=== PATIENT | female | born 1950 | race Caucasian/White ===

== ENCOUNTER 2019-10-19 16:06 | Emergency (ER) | payer MEDICARE, SELFPAY ==
--- NOTE | ~2019-10-19 | XR_ITS ---
EXAMINATION: XR chest 2V EXAM DATE: 10/19/2019 17:16 INDICATION: Chest, upper back pain. TECHNIQUE: Frontal and lateral projections of the chest obtained and reviewed. Comparison is made to prior examination from 12/08/2017. FINDINGS: The lungs are clear. There are no pleural effusions. The cardiomediastinal silhouette is within normal limits. There is no pneumothorax suspected. The bones and soft tissues are unremarkab le. IMPRESSION: No acute cardiopulmonary findings. Reviewed, dictated and finalized at location A.
[2019-10-19 16:33] VITALS: BP 106/80; PULSE 88; RESP 16; TEMP 37.2; O2SAT 99
--- NOTE | 2019-10-19 16:45 | ED.URI ---
HPI - URI/Sore Throat General Chief Complaint: Upper Respiratory Infection Stated Complaint: sinus/ear infection Time Seen by Provider: 10/19/19 16:45 Source: patient and RN notes reviewed Mode of arrival: ambulatory Limitations: no limitations History of Present Illness HPI Narrative: 69-year-old female presents with concern for fatigue, generalized weakness, upper back ache, upper chest ache. Reports she flew home from [place] on September 13, 2 weeks later began having symptoms and was started on Augmentin for a sinus and ear infection. Reports she is on day 5 of the Augmentin. Reports she feels worse today. Reports the upper chest and back aches are constant, gets worse with deep breathing. She reports the symptoms have been present for 3 to 4 days. Reports diarrhea. She denies cough, shortness of breath. Denies fever. Denies taking any gftz-dze-jdvcekh medications for her symptoms. MD elicited complaint: nasal congestion Related Data Home Medications Medication Instructions Recorded Confirmed amoxicillin-pot clavulanate tablet 10/19/19 Allergies Allergy/AdvReac Type Severity Reaction Status Date / Time No Known Drug Allergies Allergy Unknown none Verified 12/08/17 19:25 Cat Dander Allergy Mild Uncoded 11/29/13 18:23 Review of Systems Review of Systems: Narrative: CONSTITUTIONAL: Reports malaise, fatigue, generalized weakness. Denies chills, sweats, or fever. EYES: Denies visual changes, redness, or discharge. ENT: Reports rhinorrhea, congestion, sinus pain, otalgia. Denies sore throat. CARDIOVASCULAR: Reports anterior chest ache. Denies, palpitations, or edema. RESPIRATORY: Denies cough or dyspnea. GASTROINTESTINAL: Denies abdominal pain, nausea, vomiting. Reports diarrhea SKIN: Denies rash or itching. MUSCULOSKELETAL: Reports malagia and upper back aches NEUROLOGIC: Denies headache. All systems reviewed & are unremarkable except as noted in HPI and below PMFSH Comments At time of signature, agree with nursing past medical, surgical, social and family history. There is no relevant family history pertinent to the presenting complaint Exam Narrative: Exam Narrative: GENERAL: Nontoxic-appearing, well-nourished, and in no acute distress. HEAD: Normocephalic EYES: PERRLA, conjunctivae clear ENT: Nares clear, turbinates erythematous, clear discharge. Mucous membranes moist. TM pearly cooper with dull light reflex bilaterally; no tragal tenderness. Oropharynx not erythematous without lesions. Tonsils not enlarged and without exudate, no drooling, no hoarseness, no trismus, uvula midline. NECK: Supple. No lymphadenopathy CHEST: Clear to auscultation, breath sounds equal. No wheezing, rhonchi, rales, or stridor. No respiratory distress, speaks in full sentences. HEART: Regular rate and rhythm. No murmur heard. SKIN: Warm, dry, no rash. NEURO: Alert and oriented x3. PSYCH: Normal mood and affect Course Course Emergency Course: Patient is aware of diagnosis, understands and agrees to treatment plan. Anticipatory guidance given. Patient agrees to follow-up as directed and is aware of reasons to seek care at the emergency department. Portions of this record may have been created with voice recognition software Vital Signs Vital signs: Vital Signs Temperature 98.9 F 10/19/19 16:33 Pulse Rate 88 10/19/19 16:33 Respiratory Rate 16 10/19/19 16:33 Blood Pressure 106/80 10/19/19 16:33 Pulse Oximetry 99 10/19/19 16:33 Temperature 98.9 F 10/19/19 16:33 Pulse Rate 88 10/19/19 16:33 Respiratory Rate 16 10/19/19 16:33 Blood Pressure 106/80 10/19/19 16:33 Pulse Oximetry 99 10/19/19 16:33 Reviewed. MDM - URI/Sore Throat MDM Narrative Medical decision making narrative: Differential diagnosis considered: Coronavirus, strep pharyngitis, allergic rhinitis, upper respiratory tract infection, sinusitis, rhinosinusitis, nasopharyngitis. viral pharyngitis, otitis media, otitis externa, pneumonia,
--- NOTE | 2019-10-19 17:16 | PC.NURSE ---
back from xray and in br
== END 2019-10-19 17:58 | disposition home or self-care (01) ==
PROVIDERS: Emergency Provider Nurse Practitioner
DX: R52 Pain, unspecified (principal); Z20.828 Contact with and (suspected) exposure to other viral communicable diseases
CPT/HCPCS: 71046; 93005; 99213; G0463

== ENCOUNTER 2020-06-13 10:02 | Outpatient (CLI) | payer MEDICARE, SELFPAY ==
--- NOTE | ~2020-06-13 | XR_ITS ---
EXAMINATION: XR abdomen obstructive series DATE: 06/13/2020 10:32 INDICATION: Unspecified right lower abdominal pain TECHNIQUE: Supine and upright views of the abdomen. FINDINGS: Comparison to multiple prior studies sequentially, with oldest reviewed study dated 2006. The visualized lung parenchyma is normal.. There is a nonobstructive bowel gas pattern. Gas and stool are seen throughout the colon to the level of the rectum. There is no free air. There are cholecyst ectomy clips. IMPRESSION: 1. No acute abdominal abnormality. Reviewed, dictated and finalized at location A. RITY SERGEANT
--- NOTE | ~2020-06-13 | US_ITS ---
EXAMINATION: US venous doppler [facility] DATE: 06/13/2020 11:10 INDICATION: Acute embolism and thrombosis of unspecified deep veins of unspecified lower extremity. TECHNIQUE: Grayscale ultrasound images without and with compression and Doppler ultrasound images of the bilateral lower extremity veins were obtained. COMPARISON: None. FINDINGS: The visualized portions of right common femoral vein, profunda (deep) femoral vein, femoral vein, pop liteal vein, peroneal veins, posterior tibial veins, and greater saphenous vein outflow are patent. The visualized portions of left common femoral vein, profunda femoral vein, femoral vein, popliteal v ein, peroneal veins, posterior tibial veins, and greater saphenous vein outflow are patent. IMPRESSION: 1. No deep venous thrombosis. Reviewed, dictated and finalized at location A. TECHNIC MIXER
== END 2020-06-13 10:03 | disposition home or self-care (01) ==
PROVIDERS: PCP Family Medicine; Visit Provider Physician Assistant
DX: I82.402 Acute embolism and thrombosis of unspecified deep veins of left lower extremity (principal); R10.9 Unspecified abdominal pain
CPT/HCPCS: 74019; 93970

== ENCOUNTER 2020-11-02 12:07 | Emergency (ER) | payer MEDICARE, SELFPAY ==
[2020-11-02 12:18] VITALS: BP 142/66; PULSE 88; RESP 12; TEMP 36.6; O2SAT 99
--- NOTE | 2020-11-02 12:51 | ED.FEMALEGU ---
HPI - Female Genitourinary General Chief complaint: Urogenital-Female Stated complaint: uti Time Seen by Provider: 11/02/20 12:07 Source: patient and RN notes reviewed Mode of arrival: ambulatory Limitations: no limitations History of Present Illness HPI Narrative: Patient presents today complaining of low back discomfort since yesterday with fatigue and hematuria that started this morning. Denies dysuria and urinary frequency. She believes that she is developing a UTI. History of kidney stones in the past. She has tried no jbde-xdf-abviolz treatment prior to arrival. Believes that she is not drinking enough water recently. MD elicited complaint: UTI Related Data Allergies Allergy/AdvReac Type Severity Reaction Status Date / Time No Known Drug Allergies Allergy Unknown none Verified 11/02/20 12:26 Cat Dander Allergy Mild Unknown Uncoded 11/02/20 12:26 Review of Systems Review of Systems: Narrative: CONSTITUTIONAL: Denies body aches, fever, chills, or sweats.+ Fatigue EYES: Denies visual changes, redness, or discharge. ENT: Denies rhinorrhea, congestion, sore throat, or otalgia. CARDIOVASCULAR: Denies chest pain, palpitations, or edema. RESPIRATORY: Denies cough or dyspnea. GASTROINTESTINAL: Denies abdominal pain, nausea, vomiting, or diarrhea. GENITOURINARY: + Hematuria SKIN: Denies rash, itching, or wounds. MUSCULOSKELETAL: Denies joint pain, or myalgia. + Low back pain NEUROLOGIC: Denies headache, numbness, tingling, or weakness. PSYCH: Denies depression or anxiety. [facility] Past Medical History Medical History (Updated 11/02/20 @ 13:08 by Fauzia Boss, [facility]) Deep vein thrombosis (DVT) of left lower extremity Mild depression Mixed hyperlipidemia Nephrolithiasis Post-COVID syndrome Prediabetes Surgical History Surgical History H/O: hysterectomy (~2001) Hx of appendectomy (~1974) Hx of cholecystectomy (~2013) Family History Family History Mother Hypertension HLD (hyperlipidemia) Breast cancer Father Heart disease Social History Social History Smoking status: Never smoker Second hand tobacco smoke exposure: No Alcohol intake: current Substance use: unknown Gender identity (if verbalized by the patient): Female Comments At time of signature, I have reviewed and agree with nursing past medical, surgical, social and family history unless otherwise noted. Please see nursing chart for further information. There is no relevant family history pertinent to the presenting complaint Exam Narrative: Exam Narrative: GENERAL: well-nourished, and in no acute distress.+ Fatigued HEAD: Normocephalic, atraumatic. EYES: EOMI. No redness or drainage. Conjunctivae normal. ENT: Mucous membranes pink and moist. NECK: Normal AROM. Supple. No lymphadenopathy. CHEST: No respiratory distress. Clear to auscultation. HEART: Regular rate and rhythm. No murmur appreciated. Normal peripheral pulses. ABDOMEN: Soft, nontender, nondistended, normal active bowel sounds. -CVAT MUSCULOSKELETAL: No bony tenderness. EXTREMITIES: Normal range of motion. No edema. SKIN: Warm, dry, no rash. Capillary refill normal. Normal skin turgor. NEURO: No focal deficits. Alert and oriented x3. Gait steady. PSYCH: Normal affect. No signs of depression or anxiety. Course Vital Signs Vital signs: Vital Signs Temperature 97.9 F 11/02/20 12:18 Pulse Rate 88 11/02/20 12:18 Respiratory Rate 12 11/02/20 12:18 Blood Pressure 142/66 H 11/02/20 12:18 Pulse Oximetry 99 11/02/20 12:18 Temperature 97.9 F 11/02/20 12:18 Pulse Rate 88 11/02/20 12:18 Respiratory Rate 12 11/02/20 12:18 Blood Pressure 142/66 H 11/02/20 12:18 Pulse Oximetry 99 11/02/20 12:18 Reviewed. Pt has been instructed to follow up with her PCP regardin
== END 2020-11-02 12:57 | disposition home or self-care (01) ==
PROVIDERS: Emergency Provider Nurse Practitioner; PCP Family Medicine
DX: N30.01 Acute cystitis with hematuria (principal); E78.2 Mixed hyperlipidemia; R73.03 Prediabetes
CPT/HCPCS: 81003; 87086; 87088; 99213; G0463

== ENCOUNTER 2020-11-09 17:08 | Emergency (ER) | payer MEDICARE, SELFPAY ==
--- NOTE | 2020-11-09 17:16 | ED.GENADULT ---
HPI - General Adult General Chief complaint: Abdominal Pain Stated complaint: abd pain Time Seen by Provider: 11/09/20 17:30 Source: patient and RN notes reviewed Mode of arrival: ambulatory Limitations: no limitations History of Present Illness HPI narrative: 70-year-old female presents with concern for low abdominal pain, unintentional weight loss, indigestion, belching, nausea, poor appetite, feeling of fullness when she eats, fatigue. She reports she is finishing up Keflex from a visit 1 week ago when she was diagnosed with potential urinary tract infection. She denies any improvement in symptoms. She denies frequency, urgency, dysuria. She denies fever, body aches, chills, sweats. MD complaint: Abdominal pain Related Data Allergies Allergy/AdvReac Type Severity Reaction Status Date / Time No Known Drug Allergies Allergy Unknown none Verified 11/02/20 12:26 Cat Dander Allergy Mild Unknown Uncoded 11/02/20 12:26 Review of Systems Review of Systems: Narrative: CONSTITUTIONAL: Denies malaise, chills, sweats, or fever. CARDIOVASCULAR: Denies chest pain, palpitations, or edema. RESPIRATORY: Denies dyspnea. GASTROINTESTINAL: Reports low abdominal pain, nausea, feeling of fullness, indigestion. Reports 1 loose stool daily. Denies vomiting bloody, or mucous stools. GENITOURINARY: Denies dysuria, frequency, urgency, or hematuria. Reports right upper quadrant pain MUSCULOSKELETAL: Denies back pain myalgia. All systems reviewed & are unremarkable except as noted in HPI and below PMFSH Past Medical History Medical History (Updated 11/09/20 @ 17:43 by Gladys Garner NP) Deep vein thrombosis (DVT) of left lower extremity Mild depression Mixed hyperlipidemia Nephrolithiasis Post-COVID syndrome Prediabetes Surgical History Surgical History H/O: hysterectomy (~2001) Hx of appendectomy (~1974) Hx of cholecystectomy (~2013) Family History Family History Mother Hypertension HLD (hyperlipidemia) Breast cancer Father Heart disease Social History Social History Smoking status: Never smoker Second hand tobacco smoke exposure: No Alcohol intake: current Substance use: unknown Gender identity (if verbalized by the patient): Female Comments At time of signature, agree with nursing past medical, surgical, social and family history. There is no relevant family history pertinent to the presenting complaint Exam Narrative: Exam Narrative: GENERAL: Well-appearing, well-nourished, and in no acute distress. HEAD: Normocephalic. EYES: PERRLA, conjunctivae clear. NECK: Supple. No lymphadenopathy CHEST: Clear to auscultation. No respiratory distress. HEART: Regular rate and rhythm. SKIN: Warm, dry, no rash. NEURO: Alert and oriented x3. PSYCH: Normal mood and affect Course Course Emergency Course: Patient limited diagnostic capability at the [facility]. Discussed further evaluation with her primary care provider or transfer to the emergency department. Patient chooses to be transferred to the emergency department since it is Thursday night and she will not be able to see her doctor until at least Thursday. Patient is aware of, understands and agrees to treatment plan. Anticipatory guidance given. Patient agrees to proceed directly to the emergency department. Portions of this record may have been created with voice recognition software Vital Signs Vital signs: Reviewed. Transfer Transfered to: [place] Transportation: Other (Private vehicle) Transfer rationale: Abdominal pain Medical Decision Making MDM Narrative Medical decision making narrative: Exam findings and history warrant further evaluation: patient is non-toxic appearing and is in no distress. Patient is appropriate for transfer via private vehicle Critical Care Time Critical
[2020-11-09 17:17] VITALS: BP 139/74; PULSE 83; RESP 16; TEMP 36.9; O2SAT 99
== END 2020-11-09 17:51 | disposition home or self-care (01) ==
PROVIDERS: Emergency Provider Nurse Practitioner; PCP Family Medicine
DX: R10.9 Unspecified abdominal pain (principal); E78.2 Mixed hyperlipidemia; R73.03 Prediabetes; Z86.718 Personal history of other venous thrombosis and embolism
CPT/HCPCS: 99212; G0463

== ENCOUNTER 2020-11-09 18:54 | Emergency (ER) | payer MEDICARE, SELFPAY ==
--- NOTE | ~2020-11-09 | CT_ITS ---
EXAMINATION: CT abdomen pelvis w con DATE: 11/10/2020 00:10 INDICATION: Abdominal pain, nausea, diarrhea, hematuria, back pain, fatigue TECHNIQUE: Computed tomography (CT) of the abdomen and pelvis was performed with 100 cc Omnipaque 350 intravenous contrast. Automated exposure control and iterative reconstruction technique were employe d. Exam dose: 1143.36 mGy-cm total exam DLP. COMPARISON: None. FINDINGS: There is discoid atelectasis and/or scarring in the lower lung zones, primarily at the lowe r lobes. No pericardial or pleural effusion. Status post cholecystectomy. 9.5 mm left hepatic cyst. The liver, spleen, pancreas and adrenal glands are otherwise unremarkable. No bile duct or pancreatic duct abnormal dilatation or pancreatic calcification. Small sliding hiatal hernia. There is a 4.8 cm right renal cyst. There are several up to 1.6 cm left renal cysts. There is an approximately 3.5 mm calcification in the region of the distal right ureter, without hydr oureteronephrosis. Consider repeat CT abdomen pelvis examination with IV contrast material, with tania yed views and delayed KUB to definitively confirm or exclude suspected distal right ureteral calculus . The urinary bladder is unremarkable. Normal caliber of the abdominal aorta. No intraperitoneal or retroperitoneal or pelvic mass lesion or adenopathy or ascites. There is diverticulosis of the left and right colon; no CT evidence of diverticulitis. The appendix appears to be absent. No bowel obstruction, bowel wall thickening, pneumatosis or intrap eritoneal free air. Small fat-containing umbilical hernia. Degenerative changes of the thoracic and lumbar spine including prominent degenerative disc disease i n particular at L3-4. No suspicious osteolytic or osteoblastic lesions. IMPRESSION: Suspected 3.5 mm distal right ureteral calculus without hydroureteronephrosis; consider repeat CT abdomen pelvis examination with IV contrast material, with delayed CT views and delayed KUB to definitively confirm or exclude ureteral calculus Diverticulosis of left and right colon; no CT evidence of diverticulitis Small sliding hiatal hernia Status post cholecystectomy Status post hysterectomy Left hepatic small cyst Bilateral renal cysts Reviewed, dictated and finalized at Location A. Reviewed, dictated and finalized at location A. IMPRESSION: Suspected 3.5 mm distal right ureteral calculus without hydrourete ronephrosis; consider repeat CT abdomen pelvis examination with IV contrast mat erial, with delayed CT views and delayed KUB to definitively confirm or exclude ureteral calculus Diverticulosis of left and right colon; no CT evidence of diverticulitis Small sliding hiatal hernia Status post cholecystectomy Status post hysterectomy Left hepatic small cyst Bilateral renal cysts
[2020-11-09 18:59] VITALS: BP 144/97; PULSE 87; RESP 20; TEMP 36.2; O2SAT 100
[2020-11-09 19:15] LABS: Basophils Absolute Auto 0.1 K/mm3 (0.0-0.1); Basophils Percent Auto 0.8 % (0.2-1.2); Eosinophils Absolute Auto 0.1 K/mm3 (0-0.3); Hematocrit 40.3 % (37.0-47.0); Hemoglobin 13.4 g/dL (12.0-15.0); Immature Granulocyte Absolute 0.02 K/mm3 (0.00-0.031); Immature Granulocyte Percent A 0.2 % (0-0.5); Lymphocytes Absolute Auto 2.45 K/mm3 (0.9-3.2); Lymphocytes Percent Auto 29.2 % (18.3-44.2); Mean Corpuscular HGB Conc 33.3 g/dl (32-36); Mean Corpuscular Hemoglobin 30.7 pg (26-34); Mean Corpuscular Volume 92.4 fl (80-100); Mean Platelet Volume 8.8 fl (7.4-10.4); Monocytes Percent Auto 11.9 % (2.6-8.5); Neutrophils Absolute Auto 4.8 K/mm3 (1.3-6.7); Neutrophils Percent Auto 56.9 % (45.5-73.1); Platelet Count Result 336 k/mm3 (150-375); Red Blood Count 4.36 M/mm3 (4.2-5.4); Red Cell Distribution Width 13.7 % (11.5-14.5); White Blood Count 8.4 K/mm3 (4.5-10.0)
[2020-11-09 19:20] LABS: Add Urine Microscopic? YES; Appearance Urine Clear (Clear); Bacteria Urine Trace /hpf; Bilirubin Urine Negative (Negative); Blood Urine 1+ (Negative); Color Urine Yellow (Yellow); Glucose Urine UA Negative (Negative); Ketones Urine Trace mg/dL (Negative); Leukocyte Esterase Ur Negative LEU/UL (Negative); Mucus Urine Rare /lpf; Nitrate Urine Negative (Negative); Protein Urine Negative (Negative); Specific Grav Ur 1.017 (1.001-1.035); Squamous Epithelial Cell Urine Rare /hpf (Few); Urobilinogen Urine Negative mg/dL (<2.0)
[2020-11-09 19:29] LABS: Alanine Aminotransferase 20 U/L (4-35); Albumin Level 4.6 g/dL (3.5-5.1); Alkaline Phosphatase 76 U/L (38-126); Anion Gap 8 mmol/L (8-16); Aspartate Amino Transferase 31 U/L (14-36); Bilirubin,Total 0.7 mg/dL (0.2-1.3); Blood Urea Nitrogen 13 mg/dL (7-17); Calcium 9.8 mg/dL (8.4-10.2); Carbon Dioxide 27 mmol/L (22-30); Chloride 104 mmol/L (98-107); Estimated CRCL calculation 67 ml/min; Estimated Glomerular Filt Rate > 60; Glucose 87 mg/dL (65-105); Lipase 225 U/L (23-300); Sodium 139 mmol/L (137-145)
[2020-11-09 22:08] VITALS: BP 152/80; PULSE 77; TEMP 36.6; O2SAT 100
[2020-11-09 23:43] VITALS: BP 130/66; PULSE 70; RESP 12; TEMP 36.7; O2SAT 100
[2020-11-09] MEDS: SODIUM CHLORIDE 0.9% IV 1,000 ML 999 ML IV CONT (23:49)
[2020-11-09] MEDS: ONDANSETRON INJ 4 MG/2 ML VIAL IV PUSH (23:49)
--- NOTE | 2020-11-09 23:49 | PC.NURSE ---
Pt presents to ED with complaints of nausea and back pain that has been persistent for the past week. Pt states she was seen in UC and diagnosed with UTI and prescribed keflex. Pt states discomfort was persistent so she returned to UC today and was advised that she never had a UTI. Pt states back pain increased over the past 2 days and nausea increased over the last 4. Pt states back pain increases with walking and nausea is intermittent without emesis. Pt currently rates back pain 4/10 and denies nausea at this time. Pt states she has been experiencing a poor appetite as well. Resting comfortably on cart alert x4, stable and in no obvious distress. O2 100% on room air and vitals are stable. Call button and personal items within reach. Pt advised to press call button for assistance. Will advise EDMD of pt complaints of pain.
--- NOTE | 2020-11-09 23:53 | PC.NURSE ---
Pt to ct via cart.
--- NOTE | 2020-11-10 01:45 | PC.NURSE ---
Pt resting on cart in its lowest position with call button and personal items within reach. Pt denies nausea, emesis and pain at this time and states the zofran helped. No complaints or concerns voiced at this time. Call button and personal items within reach. Pt advised to press call button for assistance.
[2020-11-10 01:47] VITALS: BP 120/67; PULSE 70; PULSE 76; RESP 12; TEMP 36.7; O2SAT 100
[2020-11-10 01:48] VITALS: BP 140/77; PULSE 86
[2020-11-10 01:52] VITALS: BP 118/68; PULSE 80
[2020-11-10 03:27] VITALS: BP 105/67; PULSE 69; RESP 13; TEMP 36.4; O2SAT 99
--- NOTE | 2020-11-10 03:27 | PC.NURSE ---
Pt resting on cart in its lowest position with call button and personal items within reach. Pt requesting update from EDMD; will notify.
--- NOTE | 2020-11-10 03:59 | ED.GENADULT ---
HPI - General Adult General Chief complaint: Nausea/Vomiting/Diarrhea Stated complaint: [facility] from [facility] Time Seen by Provider: 11/09/20 22:09 History of Present Illness HPI narrative: Patient 70-year-old female who presents emerged from with chief complaint of abdominal pain and diarrhea. Patient reports was diagnosed with a urinary tract infection last week [facility] started on Keflex and has had continual diarrhea. Patient states that her abdomen is cramping. The patient reports she was seen in urgent care today and sent to the emergency department for evaluation. Patient states that she feels very weak and exhausted but has had problems with exhaustion since she had Covid and is followed by the [facility] Covid clinic. Patient denies fevers denies vomiting reports that she has a full sensation whenever she eats anything. Related Data Allergies Allergy/AdvReac Type Severity Reaction Status Date / Time No Known Drug Allergies Allergy Unknown none Verified 11/02/20 12:26 Cat Dander Allergy Mild Unknown Uncoded 11/02/20 12:26 Review of Systems Review of Systems: Narrative: A 10 system review of systems was completed on the patient and is negative except for what is stated in the HPI. Nursing and ancillary documentation was reviewed. [facility] Past Medical History Medical History Deep vein thrombosis (DVT) of left lower extremity Mild depression Mixed hyperlipidemia Nephrolithiasis Post-COVID syndrome Prediabetes Surgical History Surgical History H/O: hysterectomy (~2001) Hx of appendectomy (~1974) Hx of cholecystectomy (~2013) Family History Family History Mother Hypertension HLD (hyperlipidemia) Breast cancer Father Heart disease Social History Social History Smoking status: Never smoker Second hand tobacco smoke exposure: No Alcohol intake: current Substance use: unknown Gender identity (if verbalized by the patient): Female Exam Narrative: Exam Narrative: GENERAL: Well-appearing, well-nourished, and in no acute distress. HEAD: Normocephalic, atraumatic. EYES: PERRLA and EOMI. ENT: Nares clear, no rhinorrhea or epistaxis. Mucous membranes moist. NECK: Supple. CHEST: Clear to auscultation. No respiratory distress. HEART: Regular rate and rhythm. No murmur heard. Normal peripheral pulses. ABDOMEN: Soft, nontender, nondistended, normal active bowel sounds. EXTREMITIES: Normal range of motion. No edema. SKIN: Warm, dry, no rash. NEURO: No focal deficits. Alert and oriented x3. PSYCH: Normal mood and affect. Course Vital Signs Vital signs: Vital Signs Temperature 36.2 C L 11/09/20 18:59 Pulse Rate 87 11/09/20 18:59 Respiratory Rate 20 11/09/20 18:59 Blood Pressure 144/97 H 11/09/20 18:59 Pulse Oximetry 100 11/09/20 18:59 Temperature 36.4 C 11/10/20 03:27 Pulse Rate 69 11/10/20 03:27 Respiratory Rate 13 11/10/20 03:27 Blood Pressure 105/67 11/10/20 03:27 Pulse Oximetry 99 11/10/20 03:27 Medical Decision Making Vital Signs Vital Signs: Vital Signs Temperature 36.2 C L 11/09/20 18:59 Pulse Rate 87 11/09/20 18:59 Respiratory Rate 20 11/09/20 18:59 Blood Pressure 144/97 H 11/09/20 18:59 Pulse Oximetry 100 11/09/20 18:59 Temperature 36.4 C 11/10/20 03:27 Pulse Rate 69 11/10/20 03:27 Respiratory Rate 13 11/10/20 03:27 Blood Pressure 105/67 11/10/20 03:27 Pulse Oximetry 99 11/10/20 03:27 Lab Data Result diagrams: 11/09/20 19:04 11/09/20 19:04 Labs: Lab Results 11/09/20 11/09/20 11/09/20 Range/Units 19:04 19:04 19:04 WBC 8.4 (4.5-10.0) K/mm3 RBC 4.36 (4.2-5.4) M/mm3 Hgb 13.4 (12.0-15.0) g/d
[2020-11-10 04:59] VITALS: BP 110/56; PULSE 70; RESP 14; TEMP 36.9; O2SAT 94
[2020-11-10 05:00] VITALS: BP 110/56; PULSE 70; RESP 14; TEMP 36.9; O2SAT 94
== END 2020-11-10 05:02 | disposition home or self-care (01) ==
PROVIDERS: General Practice; Emergency Provider Emergency Medicine; PCP Family Medicine
DX: R19.7 Diarrhea, unspecified (principal); R10.84 Generalized abdominal pain; R73.03 Prediabetes; E78.2 Mixed hyperlipidemia; R53.83 Other fatigue; B94.8 Sequelae of other specified infectious and parasitic diseases; Z87.442 Personal history of urinary calculi; Z86.718 Personal history of other venous thrombosis and embolism; K57.90 Diverticulosis of intestine, part unspecified, without perforation or abscess without bleeding; K44.9 Diaphragmatic hernia without obstruction or gangrene; K76.89 Other specified diseases of liver; N28.1 Cyst of kidney, acquired; N13.30 Unspecified hydronephrosis; R93.41 Abnormal radiologic findings on diagnostic imaging of renal pelvis, ureter, or bladder
CPT/HCPCS: 36415; 74177; 80053; 81001; 83690; 85025; 87086; 96361; 96374; 99284; J2405; J7030; Q9967

== ENCOUNTER 2020-11-13 12:00 | Outpatient (CLI) | payer MEDICARE, SELFPAY ==
--- NOTE | ~2020-11-13 | XR_ITS ---
EXAMINATION: XR chest 2V DATE: 11/13/2020 10:39 INDICATION: Dyspnea. TECHNIQUE: Frontal and lateral views of the chest were obtained. COMPARISON: Chest 2 views 10/19/2019 FINDINGS: There is mild atelectasis at left lung base. No pleural effusion or pneumothorax. The heart size is normal. Surgical clips in the right upper quadrant are likely from cholecystectomy. IMPRESSION: 1. Mild atelectasis at left lung base. Reviewed, dictated and finalized at location A.
--- NOTE | 2020-11-13 11:37 | ECG_ITS ---
Measurements Intervals Bertha Rate: 71 P: 30 MO: 174 QRS: -5 QRSD: 85 T: 31 QT: 395 QTc: 430 Interpretive Statements SINUS RHYTHM BASELINE WANDER- II, III, AVF NORMAL ECG Electronically Signed On 11-13-2020 11:45:46 CDT by Joe Barrera D.O.
== END 2020-11-13 12:01 | disposition home or self-care (01) ==
LOC: ANHIMG 12:00
PROVIDERS: PCP Family Medicine; Visit Provider Family Medicine
DX: R06.00 Dyspnea, unspecified (principal); K52.1 Toxic gastroenteritis and colitis; T36.95XA Adverse effect of unspecified systemic antibiotic, initial encounter
CPT/HCPCS: 71046; 93005

== ENCOUNTER 2020-11-20 15:49 | Outpatient (CLI) | payer MEDICARE, SELFPAY ==
--- NOTE | ~2020-11-20 | CT_ITS ---
EXAMINATION: CT abdomen pelvis wo/w con DATE: 11/20/2020 17:33 INDICATION: Right ureteral stone TECHNIQUE: Computed tomography (CT) of the abdomen and pelvis was performed without and with 130 cc O mnipaque 350 intravenous contrast. The dose-length product was 1197.74 mGy-cm. Automated exposure con trol and iterative reconstruction technique were employed. COMPARISON: CT dated 11/10/2020 FINDINGS: Right basilar atelectasis/scarring. Heart size normal. No significant pleural or pericardia l effusion. Status post cholecystectomy. There is an exophytic right renal cyst measuring 5 cm. No re nal/ureteral stones or hydronephrosis. Colonic diverticula without evidence for diverticulitis. Inter rambo passage of distal ureteral stones seen on prior examination. Bladder is unremarkable. No abnormal pelvic masses or fluid collections. No lymphadenopathy. There is a small left hepatic lobe cyst. [place] is surgically absent. No lytic or blastic lesions. Nonobstructive bowel gas pattern. Colonic dive rticulosis without diverticulitis. IMPRESSION: 1. No acute abdominal abnormality. No renal/ureteral stones or hydronephrosis. Interval passage of di stal right ureteral stone since prior study. Reviewed, dictated and finalized at location A. IMPRESSION: 1. No acute abdominal abnormality. No renal/ureteral stones or hydronephrosis. Interval passage of distal right ureteral stone since prior study.
--- NOTE | ~2020-11-20 | CT_ITS ---
EXAMINATION: CT diagnostic chest w con DATE: 11/20/2020 17:33 INDICATION: Dyspnea. Post- Covid infection. TECHNIQUE: Computed tomography (CT) of the chest was performed with 130 cc Omnipaque 350 intravenous contrast. The dose-length product was 625.26 mGy-cm. Automated exposure control and iterative reconst ruction technique were employed. COMPARISON: Chest x-ray dated 11/13/2020 FINDINGS: No thoracic lymphadenopathy. Heart size normal. No significant pleural or pericardial effus ion. There are cholecystectomy clips. There is fatty infiltration of the liver. There is bilateral lo wer lobe atelectasis/scarring. No focal airspace consolidation. No pneumothorax. No suspicious pulmon rhina nodules or masses. Calcified granuloma left upper thorax. moderate thoracic spondylosis. No acute bone or joint abnormality. IMPRESSION: 1. Bilateral lower lobe atelectasis/scarring. Reviewed, dictated and finalized at location A.
--- NOTE | ~2020-11-20 | XR_ITS ---
XR abdomen/kub 1V 11/20/2020 17:38 Indication: Right ureteral stone Procedure: KUB Comparison: 05/12/2007 Findings: There are cholecystectomy clips. Bowel gas pattern is nonobstructive. No abnormal renal sto king. No stones identified in the course of the ureters. Impression: 1: No acute abdominal abnormality. Reviewed, dictated and finalized at location A. Impression: 1: No acute abdominal abnormality.
== END 2020-11-20 15:50 | disposition home or self-care (01) ==
PROVIDERS: PCP Family Medicine; Visit Provider Urology
DX: J98.4 Other disorders of lung (principal); R06.00 Dyspnea, unspecified; N20.1 Calculus of ureter
CPT/HCPCS: 71260; 74018; 74178; Q9967

== ENCOUNTER 2020-11-30 08:43 | Outpatient (CLI) | payer MEDICARE, SELFPAY ==
--- NOTE | 2020-11-30 08:49 | ECHO_ITS ---
Patient Info Name: Jennifer Flowers Age: 70 years : 1950 Gender: Female Ht: 65 in Wt: 215 lbs BSA: 2.16 m2 HR: 68 bpm BP: 119 / 81 mmHg Technical Quality: Good Exam Date: 11/30/2020 8:53 AM Exam Location: [facility] Patient Status: Outpatient Admit Date: 11/30/2020 Staff Ordering Physician: Laurie Talley MD [employer] Supervisor: Jessie Singh RDCS Attending Provider: Laurei Talley MD Referring Physician: Mayank SWAN; Exam Type: CA echo doppler color flow Study Info Indications R06.00 - Dyspnea, unspecified Complete two-dimensional, color flow and Doppler transthoracic echocardiogram is performed. Summary 1. Complete two-dimensional, color flow and Doppler transthoracic echocardiogram is performed. 2. Left ventricular chamber dimension is normal. 3. Left ventricular systolic function is normal, estimated at 60-65%. 4. The left ventricular diastolic function is grade I diastolic dysfunction. 5. E/e' 13 is mildly elevated. 6. Global longitudinal strain is normal at -18.2%. 7. Left atrial chamber dimension is mildly enlarged. 8. There is mild aortic valve sclerosis. 9. The mitral valve has moderately calcified annulus. 10. There is trace tricuspid valve regurgitation. 11. No pulmonary hypertension, estimated pulmonary arterial systolic pressure is 24 mmHg. 12. There is trace pulmonic regurgitation. Left Ventricle E/e' 13 is mildly elevated. Global longitudinal strain is normal at -18.2%. Left ventricular chamber dimension is normal. Left ventricular systolic function is normal, estimated at 60-65%. The left ventricular diastolic function is grade I diastolic dysfunction. Right Ventricle Right ventricular systolic function is normal and with normal TAPSE 1.9 cm. Right ventricular chamber dimension is normal. Left Atria Left atrial chamber dimension is mildly enlarged. Right Atria Right atrial chamber dimension is normal. Aortic Valve The aortic valve is trileaflet. There is mild aortic valve sclerosis. There is no aortic valve stenosis. There is no aortic valve regurgitation. Pulmonic Valve There is trace pulmonic regurgitation. Mitral Valve The mitral valve has moderately calcified annulus. There is no mitral valve stenosis. There is no mitral valve regurgitation. Tricuspid Valve There is trace tricuspid valve regurgitation. No pulmonary hypertension, estimated pulmonary arterial systolic pressure is 24 mmHg. Pericardium/Pleural There is no pericardial effusion. Inferior Vena Cava Normal inferior vena cava with >50% collapse upon inspiration consistent with normal right atrial pressure, 5 mmHg. Aorta The aortic root size at the sinus of Valsalva is normal. Left Ventricular Outflow Tract Name Value Normal LVOT 2D LVOT Diameter 2.0 cm LVOT Doppler LVOT Peak Velocity 92 cm/s LVOT Peak Gradient 3 mmHg LVOT Mean Gradient 2 mmHg LVOT VTI 21 cm LVOT VTI/AV VTI Ratio 0.9 LVOT Stroke Volume 69
== END 2020-11-30 08:44 | disposition home or self-care (01) ==
PROVIDERS: PCP Family Medicine; Visit Provider Family Medicine
DX: R06.00 Dyspnea, unspecified (principal); R07.89 Other chest pain
CPT/HCPCS: 93306

== ENCOUNTER 2020-12-19 08:08 | Outpatient (CLI) | payer MEDICARE, SELFPAY ==
--- NOTE | 2020-12-21 07:12 | WPDPFTINT ---
PFT Procedure Performed PFT Procedure Performed Plethysmography (Lung Vol) Diffusing Cap (DLCO) Flow Vol Loop Spirometry w/o Bronchodil PFT Interpretation This is a pulmonary function test with spirometry, plethysmography and diffusing capacity. The test was performed and results interpreted in accordance with the 2019 and 2005 ATS/ERS Task Force guidelines respectively using the Global Lung Function Initiative-2012 reference equations. Patient demonstrated good effort and cooperation. Reproducibility criteria were met. The quality of the spirometry maneuver was Grade A. Findings: Spirometry:The contour of the inspiratory and expiratory flow tracing are normal. The FVC is 2.69 L, 90% predicted. The FEV1 is 1.86 L, 81% predicted. The FEV1: FVC ratio was 69%. Plethysmography: Total lung capacity is 5.62 L, 108% predicted. The functional residual capacity is 3.38 L, 114% predicted. The residual volume is 2.86 L, 129% predicted. Diffusing capacity: The absolute diffusion capacity is 18.0, 86% predicted. The diffusing capacity corrected for alveolar volume is 4.48, 105% predicted Impression: The spirometry is normal without evidence of an obstructive abnormality. The lung volumes are normal. The diffusing capacity is normal. There are no prior studies for comparison
== END 2020-12-19 08:09 | disposition home or self-care (01) ==
PROVIDERS: PCP Family Medicine; Visit Provider Family Medicine
DX: R06.00 Dyspnea, unspecified (principal); R07.89 Other chest pain
CPT/HCPCS: 94060; 94726; 94729

== ENCOUNTER 2021-03-13 14:43 | Outpatient (CLI) | payer MEDICARE, SELFPAY ==
--- NOTE | ~2021-03-13 | XR_ITS ---
XR abdomen/kub 1V DATE: 03/13/2021 15:03 INDICATION: History of left kidney stone TECHNIQUE: AP projection, 2 views COMPARISON: 11/20/2020 CT abdomen pelvis examination without and with IV contrast material FINDINGS: The psoas shadows are intact. No visceromegaly is evident. No calcification is noted overlying the urinary tracts. There is no evidence of bowel obstruction. Surgical clips, right upper quadrant, consistent with cholecystectomy. IMPRESSION: Status post cholecystectomy Reviewed, dictated and finalized at Location A. Reviewed, dictated and finalized at location A. IMPRESSION: Status post cholecystectomy
== END 2021-03-13 14:44 | disposition home or self-care (01) ==
LOC: ANHIMG 14:48
PROVIDERS: PCP Family Medicine; Visit Provider Internal Medicine Nephrology
DX: N20.0 Calculus of kidney (principal); Z90.49 Acquired absence of other specified parts of digestive tract
CPT/HCPCS: 74018

== ENCOUNTER 2021-03-20 12:33 | Outpatient (CLI) | payer MEDICARE, SELFPAY ==
--- NOTE | ~2021-03-20 | XR_ITS ---
EXAMINATION: XR lumbar spine min 4V DATE: 03/20/2021 13:24 INDICATION: Right-sided mid to lower back pain. TECHNIQUE: Standing AP, lateral, and bilateral oblique views of the lumbar spine, and cone-down later al view of the lumbosacral junction were obtained. COMPARISON: CT dated 11/20/2020 FINDINGS: 10 degree lumbar dextroscoliosis. Sagittal alignment is normal. Vertebral body heights are normal. Mo derate to severe left-sided predominant disc height loss at L3-L4. Remaining disc heights are normal. Severe bilateral facet osteoarthritis at L4-L5 and L5-S1. No pars interarticularis defects. Mild ost eoarthritis at the bilateral hip and sacroiliac joints. Cholecystectomy clips in the right upper quad rant. IMPRESSION: 1. Mild lumbar dextroscoliosis with severe lower lumbar facet osteoarthritis and moderate to severe d isc height loss at L3-L4. Reviewed, dictated and finalized at location A. IMPRESSION: 1. Mild lumbar dextroscoliosis with severe lower lumbar facet osteoarthritis an d moderate to severe disc height loss at L3-L4.
--- NOTE | ~2021-03-20 | XR_ITS ---
EXAMINATION: XR thoracic spine min 4V, XR ribs RT 2V w CXR 2V DATE: 03/20/2021 INDICATION: Thoracic spine pain. Pleuritic dyspnea and right-sided chest pain TECHNIQUE: 1. Standing AP, left and right oblique, lateral and lateral swimmer's views of the thoracic spine wer e obtained. 2. PA and lateral views of the chest and 3 views of the right ribs were obtained. COMPARISON: None. FINDINGS: Chest and ribs: Mild streaky atelectasis/scarring at the lingula along side a small paracardial fat pad. No other air space opacities, pulmonary edema, pleural effusion or pneumothorax. Heart size and mediastinal silhou ette are normal. No rib fractures identified. Cholecystectomy clips in the right upper quadrant. Thoracic spine: Mild thoracic levocurvature. Thoracic kyphosis. Vertebral body heights are normal. Mild to moderate d isc height loss with small degenerative endplate osteophytes with midthoracic predominance. IMPRESSION: 1. No rib fractures or acute cardiopulmonary disease. 2. Thoracic kyphosis with mild levocurvature and mild to moderate spondylosis. Reviewed, dictated and finalized at location A. IMPRESSION: 1. No rib fractures or acute cardiopulmonary disease. 2. Thoracic kyphosis with mild levocurvature and mild to moderate spondylosis.
== END 2021-03-20 12:34 | disposition home or self-care (01) ==
LOC: ANHIMG 12:48
PROVIDERS: PCP Family Medicine; Visit Provider Family Medicine
DX: R07.81 Pleurodynia (principal); M47.817 Spondylosis without myelopathy or radiculopathy, lumbosacral region; M40.204 Unspecified kyphosis, thoracic region; M47.815 Spondylosis without myelopathy or radiculopathy, thoracolumbar region
CPT/HCPCS: 71046; 71100; 72074; 72110

== ENCOUNTER 2021-12-01 11:38 | Emergency (ER) | payer MEDICARE, SELFPAY ==
--- NOTE | ~2021-12-01 | XR_ITS ---
EXAMINATION: XR chest 2V DATE: 12/01/2021 12:46 INDICATION: Cough TECHNIQUE: PA and lateral views of the chest are obtained. COMPARISON: 03/20/2021 FINDINGS: There is mild atelectasis or scarring of the left lung base. There is no pleural effusion o r pneumothorax. The cardiomediastinal silhouette is normal. There is moderate thoracic spondylosis. IMPRESSION: 1. No acute cardiopulmonary abnormality. Reviewed, dictated and finalized at location A.
[2021-12-01 11:42] VITALS: BP 152/81; PULSE 91; RESP 12; TEMP 36.3; O2SAT 99
[2021-12-01 11:46] VITALS: BP 152/81; PULSE 91; RESP 12; TEMP 36.3; O2SAT 99
--- NOTE | 2021-12-01 12:25 | ED.GENADULT ---
HPI - General Adult General Chief complaint: Upper Respiratory Infection Stated complaint: SINUS/SORE THROAT/TIRED Source: patient Mode of arrival: ambulatory Limitations: no limitations History of Present Illness HPI narrative: Patient presents for evaluation of respiratory symptoms since Thursday of last week. Symptoms include productive cough of clear/white sputum, exertional dyspnea, sore throat, bilateral otalgia, burning sensation in her eyes, and headache. She is not sure whether she has experienced a fever. No nausea or vomiting. She had some diarrhea past couple of days but that decreased yesterday and none today. No recent sick contacts to her knowledge. She had COVID in 2019. She has received her COVID vaccinations. She has taken multiple home COVID test since last Thursday, often times taking two per day. All tests were negative. She also had a PCR test at [facility] which was negative. She has been taking tylenol and mucinex for her symptoms. She developed a DVT following her previous COVID diagnosis and is currently anticoagulated with eliquis. She does not smoke. No additional complaints or concerns. Related Data Home Medications Medication Instructions Recorded Confirmed atorvastatin 40 mg tablet 20 mg PO DAILY 02/08/21 12/01/21 amiloride 5 mg tablet 5 mg PO DAILY 07/22/21 07/22/21 spironolactone 25 mg tablet 25 mg PO DAILY 07/22/21 12/01/21 budesonide 0.5 mg/2 mL suspension ml 12/01/21 12/01/21 for nebulization hydrochlorothiazide 25 mg tablet tablet 12/01/21 meloxicam 15 mg tablet tablet 12/01/21 Allergies Allergy/AdvReac Type Severity Reaction Status Date / Time Cat Dander Allergy Mild Unknown Uncoded 12/01/21 11:44 Review of Systems Review of Systems: CONSTITUTIONAL: Denies fever, chills, or sweats. EYES: Reports burning sensation in her eyes. Denies visual changes, redness, or discharge. ENT: Reports sinus congestion and sore throat CARDIOVASCULAR: Denies chest pain, palpitations, or edema. RESPIRATORY: Reports productive cough of clear/white sputum. Reports exertional dyspnea. GASTROINTESTINAL: Reports diarrhea. Denies abdominal pain, nausea, vomiting GENITOURINARY: Denies dysuria or hematuria. SKIN: Denies rash or itching. MUSCULOSKELETAL: Denies back pain, joint pain, or myalgia. NEUROLOGIC: Denies headache, numbness, dizziness, or weakness. PSYCHIATRIC: Denies anxiety or depression. [facility] Past Medical History Medical History (Updated 12/01/21 @ 13:33 by AICHA Aguiar, ) Deep vein thrombosis (DVT) of left lower extremity Encounter for monitoring diuretic therapy H/O deep venous thrombosis Headache Mild depression Mixed hyperlipidemia Nephrolithiasis Obesity Post-COVID syndrome Prediabetes Scarring of lung Surgical History Surgical History H/O: hysterectomy (~2001) Hx of appendectomy (~1974) Hx of cholecystectomy (~2013) Family History Family History Mother Hypertension HLD (hyperlipidemia) Breast cancer Father Heart disease Social History Social History Second hand tobacco smoke exposure: No Alcohol intake: never Substance use: never Substance use type: does not use Living arrangements: alone Additional occupation/education comments: Realtor Gender identity (if verbalized by the patient): Female Spiritual care concerns: No Exam Narrative: GENERAL: Well-appearing, well-nourished, and in no acute distress. HEAD: Normocephalic, atraumatic. EYES: PERRLA and EOMI. ENT: Nares clear, no rhinorrhea or epistaxis. Mucous membranes moist. Oropharynx without tonsillar hypertrophy exudate or other lesions. Bilateral TMs pearly cooper nonbulging NECK: Supple. No adenopathy or masses. No carotid bruits or JVD CHEST: Clear to auscultation. No respiratory distress.
== END 2021-12-01 13:45 | disposition home or self-care (01) ==
PROVIDERS: Emergency Provider Nurse Practitioner; PCP Family Medicine
DX: B34.9 Viral infection, unspecified (principal); Z20.822 Contact with and (suspected) exposure to COVID-19; Z86.73 Personal history of transient ischemic attack (TIA), and cerebral infarction without residual deficits; E78.2 Mixed hyperlipidemia; E66.9 Obesity, unspecified; Z68.35 Body mass index [BMI] 35.0-35.9, adult; R73.03 Prediabetes; Z86.16 Personal history of COVID-19; Z79.01 Long term (current) use of anticoagulants
CPT/HCPCS: 71046; 87081; 87426; 87804; 87880; 99213; C9803; G0463

== ENCOUNTER 2021-12-02 15:48 | Inpatient (IN) | payer MEDICARE, SELFPAY ==
[2021-12-02] VITALS (9 sets, daily range): BP systolic 113–153; BP diastolic 54–71; PULSE 78–119; RESP 11–20; TEMP 35.9–36.8; O2SAT 95–99; BMI 38.0
--- NOTE | ~2021-12-02 | CT_ITS ---
EXAMINATION: CT abdomen pelvis wo con DATE: 12/04/2021 07:58 INDICATION: Diverticulitis. Mid abdominal pain. TECHNIQUE: Computed tomography (CT) of the abdomen and pelvis was performed without intravenous contr ast. Automated exposure control and iterative reconstruction technique were employed. The dose-length product was 1355.13 mGy-cm. COMPARISON: CT abdomen and pelvis 12/02/2021 FINDINGS: The visualized portions of the lung bases demonstrate mild atelectasis. There is mild scarr ing in paraspinal right lower lobe. No pleural effusion. The heart size is normal. No pericardial eff usion. There is a 16 mm cyst in the liver. There are changes of cholecystectomy. The spleen, pancreas , and adrenal glands are normal. There are cysts in the kidneys measuring up to 4.1 cm on the right. There is no urolithiasis. There are scattered diverticula in the colon. There is fat stranding around a sigmoid diverticulum, consistent with diverticulitis. There are no dilated loops of bowel. The nils endix is not visualized. There are no pathologically enlarged lymph nodes. There is no free intraperi toneal fluid. There is moderate lumbar spondylosis and mild thoracic spondylosis. IMPRESSION: 1. Slightly worsened sigmoid diverticulitis. No perforation or abscess. Reviewed, dictated and finalized at location A.
--- NOTE | ~2021-12-02 | US_ITS ---
EXAMINATION: US abdomen complete DATE: 12/04/2021 12:09 INDICATION: Abnormal liver function tests. TECHNIQUE: Multiple grayscale and Doppler ultrasound images of the abdomen were obtained. COMPARISON: CT abdomen and pelvis 12/04/2021 FINDINGS: The visualized portions of the head and body of the pancreas are normal. Abdominal aorta is normal in caliber. Inferior vena cava is normal. There is a 1.5 cm cyst in the liver. There is noni l flow in main portal vein. The gallbladder is absent. The common duct is normal and measures 6 mm. T he kidneys are normal in size. There is a 4.1 cm cyst in right kidney. There is a 6 mm hyperechoic ma ss in left kidney, likely an angiomyolipoma. The spleen is normal in size. IMPRESSION: 1. No etiology for abnormal liver function tests. Reviewed, dictated and finalized at location A.
--- NOTE | ~2021-12-02 | CT_ITS ---
EXAMINATION: CT abdomen pelvis wo con DATE: 12/05/2021 12:24 INDICATION: Diverticulitis. Abdomen pain. TECHNIQUE: Computed tomography (CT) of the abdomen and pelvis was performed without intravenous contr ast. The dose-length product was 1164.50 mGy-cm. Automated exposure control and iterative reconstruct ion technique were employed. COMPARISON: CT dated 12/04/2021 FINDINGS: There is bibasilar atelectasis. Heart size normal. No significant pleural or pericardial ef fusion.There is improving proximal sigmoid diverticulitis. No evidence for perforation or abscess. Sm all fat-containing umbilical hernia. There are cholecystectomy clips. There are liver and right renal cysts. No lymphadenopathy. Status post cholecystectomy. Nonobstructive bowel gas pattern. No free ai r or free fluid. Small fat-containing left inguinal hernia. IMPRESSION: 1. Improving proximal sigmoid diverticulitis. Reviewed, dictated and finalized at location B.
--- NOTE | ~2021-12-02 | XR_ITS ---
EXAMINATION: XR chest 1V 12/02/2021 17:03 INDICATION: Cough and chills PROCEDURE: 2 view chest COMPARISON: 12/01/2021 FINDINGS: No focal pneumonia, edema, effusion or pneumothorax. There is chronic lingular atelectasis/ scarring. The cardiomediastinal silhouette is within normal limits. There are no pleural effusions. There is no pneumothorax suspected. IMPRESSION: 1: NO ACUTE CARDIOPULMONARY DISEASE. Reviewed, dictated and finalized at location B.
--- NOTE | ~2021-12-02 | CT_ITS ---
EXAMINATION: CT abdomen pelvis wo con DATE: 12/02/2021 16:54 INDICATION: Mid abdominal pain, bloating. Unable to eat. TECHNIQUE: Computed tomography (CT) of the abdomen and pelvis was performed without intravenous contr ast. Automated exposure control and iterative of a COMPARISON: 11/20/2020 CT abdomen pelvis FINDINGS: There is minimal atelectasis in the dependent lower lobes. Normal heart size. No pericardia l or pleural effusion. 11 mm hypoattenuating lesion of the anteromedial aspect of the lateral segment of the left hepatic lo be with fluid attenuation, likely a hepatic cyst. No other hepatic space-occupying mass lesion is not ed. Status post cholecystectomy. No bile duct or pancreatic duct dilatation. No pancreatic mass lesion or calcification. Normal splenic size. Normal morphology of the adrenal glands. Approximately 3.8 cm exophytic anterior right renal cyst. Approximately 1.5 cm parapelvic left renal cyst. No urinary tract calculus or hydroureteronephrosis. Normal caliber and minimal calcification of the abdominal aorta. No intraperitoneal or retroperitonea l or pelvic mass lesion or adenopathy or ascites. Small sliding hiatal hernia. There is inflammatory change in the pericolic area involving the proximal to mid sigmoid colon, with multiple diverticula noted at the descending and sigmoid colon. The findings are consistent with dive rticulitis, without evidence of abscess or free air. Diffuse idiopathic skeletal hyperostosis of the thoracic spine. Severe degenerative disc disease at L3-4. IMPRESSION: Uncomplicated sigmoid diverticulitis Diverticulosis of left colon Small sliding hiatal hernia Renal cysts Probable left hepatic cyst Reviewed, dictated and finalized at Location A. Reviewed, dictated and finalized at location A.
--- NOTE | 2021-12-02 15:59 | ECG_ITS ---
Measurements Intervals [place] Rate: 109 P: 27 AR: 128 QRS: 28 QRSD: 90 T: 38 QT: 313 QTc: 423 Interpretive Statements SINUS TACHYCARDIA ABNORMAL RHYTHM ECG COMPARED TO ECG 11/13/2020 11:42:25 SINUS TACHYCARDIA NOW PRESENT Electronically Signed On 12-02-2021 21:14:19 CDT by Haroon Zarate MD
[2021-12-02 16:11] LABS: Basophils Absolute Auto 0.1 K/mm3 (0.0-0.1); Basophils Percent Auto 0.4 % (0.2-1.2); Eosinophils Percent Auto 0.2 % (0-4.4); Hematocrit 40.3 % (37.0-47.0); Hemoglobin 13.8 g/dL (12.0-15.0); Immature Granulocyte Absolute 0.04 K/mm3 (0.00-0.031); Immature Granulocyte Percent A 0.3 % (0-0.5); Lymphocytes Absolute Auto 1.53 K/mm3 (0.9-3.2); Lymphocytes Percent Auto 12.6 % (18.3-44.2); Mean Corpuscular HGB Conc 34.2 g/dl (32-36); Mean Corpuscular Hemoglobin 31.7 pg (26-34); Mean Corpuscular Volume 92.4 fl (80-100); Mean Platelet Volume 8.8 fl (7.4-10.4); Monocytes Percent Auto 7.8 % (2.6-8.5); Neutrophils Absolute Auto 9.5 K/mm3 (1.3-6.7); Neutrophils Percent Auto 78.7 % (45.5-73.1); Platelet Count Result 298 k/mm3 (150-375); Red Blood Count 4.36 M/mm3 (4.2-5.4); Red Cell Distribution Width 13.6 % (11.5-14.5); White Blood Count 12.1 K/mm3 (4.5-10.0)
[2021-12-02 16:25] LABS: Alanine Aminotransferase 35 U/L (6-35); Albumin Level 4.5 g/dL (3.5-5.1); Alkaline Phosphatase 85 U/L (38-126); Anion Gap 7 mmol/L (8-16); Aspartate Amino Transferase 41 U/L (14-36); Bilirubin,Total 1.4 mg/dL (0.2-1.3); Blood Urea Nitrogen 10 mg/dL (7-17); Calcium 9.2 mg/dL (8.4-10.2); Carbon Dioxide 26 mmol/L (22-30); Chloride 101 mmol/L (98-107); Estimated CRCL calculation 66 ml/min; Estimated Glomerular Filt Rate > 60; Glucose 176 mg/dL (65-110); Lipase 87 U/L (23-300); Potassium 3.9 mmol/L (3.4-5.0); Sodium 134 mmol/L (137-145)
--- NOTE | 2021-12-02 16:48 | ED.GENADULT ---
HPI - General Adult General Chief complaint: Abdominal Pain Stated complaint: abd pain, seen at yesterday Time Seen by Provider: 12/02/21 16:31 Source: RN notes reviewed History of Present Illness HPI narrative: Patient presents emergency department from home for abdominal pain. Patient states that she has had pain in the periumbilical area for the past 4 days the pain is described as aching in nature and is progressively worsened now rating around to the back. She states that with that she feels like she is unable to eat she states she has had diarrhea but denies any nausea or vomiting states she has also had an associated cough this been nonproductive and a sore throat she denies any fevers or chills chest pain. States that she is taking Tylenol for the pain at home with last dose yesterday. States she was seen at the urgent care yesterday as well as at the [facility] urgent care and clinic and has had a total of 3 negative COVID test in the past 6 days as well as negative strep test and influenza test yesterday Related Data Home Medications Medication Instructions Recorded Confirmed atorvastatin 40 mg tablet 20 mg PO DAILY 02/08/21 12/01/21 spironolactone 25 mg tablet 25 mg PO DAILY 07/22/21 12/01/21 hydrochlorothiazide 25 mg tablet 1 tablet PO DAILY 12/01/21 12/01/21 meloxicam 15 mg tablet 1 tablet PO DAILY 12/01/21 12/01/21 Allergies Allergy/AdvReac Type Severity Reaction Status Date / Time Cat Dander Allergy Mild Unknown Uncoded 12/02/21 16:30 Review of Systems Review of Systems: Gen.: Denies fevers or chills Eyes: Denies eye pain or visual change ENT: Denies congestion or sore throat Respiratory: Denies shortness of breath reports cough CV: Denies chest pain or palpitations GI: See HPI Musculoskeletal: Denies back pain or muscle pain Neuro: Denies numbness, tingling, weakness or focal weakness Skin: Denies rash Except as documented, all other systems reviewed and negative PMFSH Past Medical History Medical History Deep vein thrombosis (DVT) of left lower extremity Encounter for monitoring diuretic therapy H/O deep venous thrombosis Headache Mild depression Mixed hyperlipidemia Nephrolithiasis Obesity Post-COVID syndrome Prediabetes Scarring of lung Surgical History Surgical History H/O: hysterectomy (~2001) Hx of appendectomy (~1974) Hx of cholecystectomy (~2013) Family History Family History Mother Hypertension HLD (hyperlipidemia) Breast cancer Father Heart disease Social History Social History Second hand tobacco smoke exposure: No Alcohol intake: never Substance use: never Substance use type: does not use Additional occupation/education comments: Realtor Gender identity (if verbalized by the patient): Female Spiritual care concerns: No Exam Narrative: APPEARANCE: No acute distress, nontoxic, resting in bed EYES: EOMI HEENT: Normocephalic, atraumatic, RESPIRATORY: No respiratory distress Clear to auscultation bilaterally with no rhonchi wheezing or rales. CARDIOVASCULAR: Regular rate and rhythm without murmurs rubs or gallops. ABDOMINAL: Soft, nondistended tender to palpation in periumbilical area no tenderness in right upper quadrant, left upper quadrant right lower quadrant left lower quadrant no rebound or guarding MUSCULOSKELETAl: Moves all extremities. No clubbing, cyanosis or edema. NEURO: Awake and alert. Following commands, speech normal, no focal deficits SKIN:: Warm, dry. No rashes lesions or abrasions PSYCHIATRIC: Normal affect/mood, Course Course Emergency Course: Reviewed old records patient had negative influenza strep and COVID swabs from yesterday Discussed with Dr. Galeas presentation work-up agrees with admission wi
[2021-12-02] MEDS: SODIUM CHLORIDE 0.9% IV 1,000 ML 999 ML IV CONT (17:08)
[2021-12-02 17:10] LABS: Appearance Urine Clear (Clear); Bilirubin Urine Negative (Negative); Blood Urine 1+ (Negative); Color Urine Yellow (Yellow); Glucose Urine UA Negative (Negative); Ketones Urine Negative (Negative); Leukocyte Esterase Ur 1+ LEU/UL (Negative); Nitrate Urine Negative (Negative); Protein Urine Negative (Negative); Urobilinogen Urine 0.2 mg/dL (<2.0)
[2021-12-02 17:15] LABS: Add Urine Microscopic? YES
[2021-12-02 17:43] LABS: Lactic Acid Reflex 1.3 mmol/L (0.7-2.0)
--- NOTE | 2021-12-02 18:45 | PC.NURSE ---
This patient, Jennifer Flowers, was admitted to 3 [facility] Surg Room 330-01. Patient/family oriented to hospital policies and general routines including ID bracelet, bed and alarms, visiting hours, pain management, procedures, bathroom and other care routines, personal items, smoking policy, room service/diet, and visiting hours. Report received from Jaiden BARKER Information on how to activate the Rapid Response Team has been discussed. Patient/Family are encouraged to report perceived risks to care and to ask questions if they do not understand what they are told or what they should do.
[2021-12-02] MEDS: SODIUM CHLORIDE 0.9% IV 1,000 ML 100 ML IV CONT (19:58)
--- NOTE | 2021-12-02 21:14 | PM.IMHP ---
H&P: HPI History of Present Illness Date/Time: Patient was placed observation status for expected length of stay less than 23 hours for management, will plan to re-evaluate tomorrow for improvement. 12/02/21 21:14 Chief Complaint: Abdominal pain Narrative: Ms. Flowers is a 71-year-old female who presented emergency room with complaints of generally not feeling well over the last 5 days. Patient states that last Thursday/Thursday she had a cough and a sore throat. Patient states she then began having diarrhea. Patient states she went to an urgent care and had a COVID test, strep test, and influenza that came back negative. Patient states that she also then followed up at a different urgent care and had another COVID test the next day because she continued to feel poorly. Patient states over the next few days she began developing abdominal pain in her left lower quadrant and suprapubic area. Patient denies any nausea or vomiting. Patient states that she did have COVID last year and she had 6 negative test and that is why she thought she may have COVID. Upon evaluation in emergency room patient underwent CT scan that showed uncomplicated sigmoid diverticulitis and diverticulosis of left colon. Small sliding hiatal hernia. Renal cysts. Probable left hepatic cyst. Patient was noted to have a mild leukocytosis. Patient denied any chest pain, shortness a breath, lightheadedness, dizziness, syncopal, or near syncopal episodes. Patient states she does not believe that she had a fever at home. Patient states she has a known history of renal calculi, DVT after COVID last year, dyslipidemia, migraines and diverticulosis. Review of Systems Review of Systems: A 12 point review of systems was completed patient all pertinent positive and negative per HPI the remainder are unremarkable. [facility] Past Medical History Medical History Deep vein thrombosis (DVT) of left lower extremity Encounter for monitoring diuretic therapy H/O deep venous thrombosis Headache Mild depression Mixed hyperlipidemia Nephrolithiasis Obesity Post-COVID syndrome Prediabetes Scarring of lung Surgical History Surgical History H/O: hysterectomy (~2001) Hx of appendectomy (~1974) Hx of cholecystectomy (~2013) Family History Family History (Updated 12/02/21 @ 18:55 by Sully oCmbs RN) Mother HLD (hyperlipidemia) Breast cancer Hypertension Lung cancer Father Heart disease Social History Social History Smoking status: Never smoker Second hand tobacco smoke exposure: No Alcohol intake: never Substance use: never Substance use type: does not use Additional occupation/education comments: Realtor Gender identity (if verbalized by the patient): Female Spiritual care concerns: No Meds Home Medications and Allergies Home Medications Medication Instructions Recorded Confirmed Type atorvastatin 40 mg tablet 20 mg PO DAILY 02/08/21 12/02/21 History apixaban 5 mg tablet (Eliquis) 5 mg PO BID #60 tabs 05/21/21 12/02/21 Rx ergocalciferol (vitamin D2) 1,250 1,250 mcg PO WEEKLY #12 caps 07/24/21 12/02/21 Rx mcg (50,000 unit) capsule (Vitamin D2) albuterol sulfate 90 mcg/actuation 1 inh inhalation Q4H PRN shortness 11/30/21 12/02/21 Rx aerosol inhaler (ProAir HFA) of breath or wheezing #8.5 grams [id number] 1 cap PO TID PRN pain #12 caps 12/01/21 12/02/21 Rx 50 mg-300 mg-40 mg capsule (Fioricet) hydrochlorothiazide 25 mg tablet 1 tablet PO DAILY 12/01/21 12/02/21 History meloxicam 15 mg tablet 1 tablet PO DAILY 12/01/21 12/02/21 History Allergies Allergy/AdvReac Type Severity Reaction Status Date / Time Cat Dander Allergy Mild Unknown Uncoded 12/02/21 19:04 Vital Signs Vital Signs - 24 hr 12/02/21 15:53 12/02/21 16:31
[2021-12-02] MEDS: APIXABAN 5 MG TABLET PO (21:51)
[2021-12-03] MEDS: HYDROmorphone HCL INJ (*CRX) 1 MG/ML SYR IV PUSH (01:11)
[2021-12-03 05:58] VITALS: BP 128/57; PULSE 81; RESP 18; TEMP 36.6; O2SAT 100
[2021-12-03] MEDS: ACETAMINOPHEN/BUTALBITAL/CAFFEINE 325-50-40 MG TABLET (FIORICET) 1 TAB PO ×2 (06:15→11:39)
[2021-12-03 06:22] LABS: Basophils Percent Auto 0.4 % (0.2-1.2); Eosinophils Absolute Auto 0.1 K/mm3 (0-0.3); Eosinophils Percent Auto 0.8 % (0-4.4); Hemoglobin 11.6 g/dL (12.0-15.0); Immature Granulocyte Absolute 0.04 K/mm3 (0.00-0.031); Immature Granulocyte Percent A 0.4 % (0-0.5); Lymphocytes Absolute Auto 1.94 K/mm3 (0.9-3.2); Lymphocytes Percent Auto 19.9 % (18.3-44.2); Mean Corpuscular HGB Conc 32.2 g/dl (32-36); Mean Corpuscular Hemoglobin 31.1 pg (26-34); Mean Corpuscular Volume 96.5 fl (80-100); Mean Platelet Volume 8.7 fl (7.4-10.4); Monocytes Absolute Auto 1.2 K/mm3 (0.1-0.6); Monocytes Percent Auto 12.5 % (2.6-8.5); Neutrophils Absolute Auto 6.4 K/mm3 (1.3-6.7); Platelet Count Result 245 k/mm3 (150-375); Red Blood Count 3.73 M/mm3 (4.2-5.4); Red Cell Distribution Width 13.8 % (11.5-14.5); White Blood Count 9.7 K/mm3 (4.5-10.0)
[2021-12-03] MEDS: SODIUM CHLORIDE 0.9% IV 1,000 ML 100 ML IV CONT ×2 (06:23→17:39)
[2021-12-03 06:44] LABS: Alanine Aminotransferase 41 U/L (6-35); Albumin Level 3.6 g/dL (3.5-5.1); Alkaline Phosphatase 81 U/L (38-126); Anion Gap 4 mmol/L (8-16); Aspartate Amino Transferase 45 U/L (14-36); Bilirubin,Total 1.5 mg/dL (0.2-1.3); Blood Urea Nitrogen 9 mg/dL (7-17); Calcium 8.1 mg/dL (8.4-10.2); Carbon Dioxide 25 mmol/L (22-30); Chloride 107 mmol/L (98-107); Estimated CRCL calculation 77 ml/min; Estimated Glomerular Filt Rate > 60; Glucose 117 mg/dL (65-110); Potassium 3.8 mmol/L (3.4-5.0); Sodium 136 mmol/L (137-145)
--- NOTE | 2021-12-03 07:55 | PM.IMPN ---
Progress Note: A&P Assessment and Plan (1) Acute diverticulitis: Code(s): K57.92 - Diverticulitis of intestine, part unspecified, without perforation or abscess without bleeding Status: Acute Assessment and Plan: Patient has uncomplicated diverticulitis. Monitor vital signs, I and O's, check stool output, neuro status and patient is a fall risk Monitor serum electrolytes and CBC Monitor lactic acid IV pain management Gentle IV fluid resuscitation Start Zosyn 3.375 mg every 6 hours Consider Consult gastroenterology for further evaluation, appreciate assistance and recommendation Diet: NPO Hold meloxicam (2) H/O deep venous thrombosis: Code(s): Z86.718 - Personal history of other venous thrombosis and embolism Status: Acute Assessment and Plan: Will continue with patient's home Haliquis for her history of DVT. Subjective Date/time seen: 12/03/21 07:55 Interval history: Patient appears very anxious, she is lying in bed alert and oriented. She continues to complain of mild abdominal discomfort that comes in waves. Patient will receive IV fluids and Zosyn. Her Mobic was placed on hold. Will consider Gastroenterology consultation if the patient does not clinically improve. Pending blood and urine cultures. Review of Systems Review of Systems: All systems reviewed & are unremarkable except as noted in HPI and below Exam Narrative: Constitutional: Patient is well-nourished in no acute distress. Patient is alert and oriented x3 HEENT: Moist mucous membranes. No scleral icterus. No lymphadenopathy. Neck: No carotid bruits noted no JVD noted Lungs: Lung sounds are clear to auscultation bilaterally. No accessory muscle use. No rhonchi, rales, or wheezes noted. Cardiovascular: Apical pulse is regular rate and rhythm. S1-S2 noted, no S3 or S4 noted. No gallops, murmurs, or rubs noted. Abdomen: Soft and round. Patient complains of tenderness to left lower quadrant with light palpation and to suprapubic area with palpation. No palpable masses. Extremities: No edema. Nontender. Skin: No rashes or lesions. Warm and dry. Skin is intact. Neurological: No focal neurological deficits. Cranial nerves II-XII grossly intact. Psychiatric: Cooperative, appropriate mood, and affect Objective Data Vital Signs Vital Signs: Vital Signs - 24 hr 12/02/21 15:53 12/02/21 16:31 12/02/21 17:11 Temperature 98.3 F Pulse Rate 119 H 106 H 99 Respiratory Rate 18 15 17 Blood Pressure 151/71 H 153/60 H Pulse Oximetry 98 95 96 Oxygen Delivery 12/02/21 17:15 12/02/21 17:17 12/02/21 17:30 Temperature Pulse Rate 100 100 92 Respiratory Rate 17 11 L 20 Blood Pressure 153/63 H Pulse Oximetry 97 97 99 Oxygen Delivery 12/02/21 18:38 12/02/21 18:50 12/02/21 22:00 Temperature 98.1 F 96.7 F L Pulse Rate 87 88 78 Respiratory Rate 16 16 18 Blood Pressure 134/56 L 128/62 113/54 L Pulse Oximetry 98 98 98 Oxygen Delivery 12/02/21 20:00 12/03/21 05:58 Temperature 97.8 F Pulse Rate 81 Respiratory Rate 18 Blood Pressure 128/57 L Pulse Oximetry 100 Oxygen Delivery Room Air Intake/Output Intake/Output: Intake & Output 11/30/21 12/01/21 12/02/21 12/03/21 23:59 23:59 23:59 23:59 Intake Total 1150 1050 Output Total 700 Balance 1150 350 Meds/Results Medications: Active Medications Generic Name Dose Route Start Last Admin Trade Name Freq PRN Reason Stop Dose Admin Acetaminophen/Butalbital/Caffeine 1 tab 12/02/21 21:11 12/03/21 06:15 Acetaminophen/Butalbital/Caffeine 325-50-40 Mg Tablet (Fioricet) PO 1 tab TID PRN Administration Headache Albuterol 1 puff 12/02/21 21:04 Albuterol Sulfate (*Sp) Aerosol 1 Puff INHALATION Q4H PRN shortness of breath or wheezing Apixaban 5 mg 12/02/21 21:10 12/02/21 21:51 Apixaban 5 Mg Tablet PO 5 mg BID WENDI Administration Atorvastatin Calcium 20 mg 12/03/21 09:
[2021-12-03] MEDS: APIXABAN 5 MG TABLET PO ×2 (09:18→17:41)
[2021-12-03] MEDS: ERGOCALCIFEROL 50,000 UNIT CAPSULE 50000 UNITS PO (09:18)
[2021-12-03] MEDS: ATORVASTATIN 20 MG TABLET PO (09:18)
[2021-12-03] MEDS: hydroCHLOROthiazide 25 MG TABLET PO (09:18)
[2021-12-03 14:00] VITALS: BP 120/52; PULSE 78; RESP 14; TEMP 37.3; O2SAT 95
[2021-12-03 14:43] VITALS: O2SAT 98
[2021-12-03] MEDS: CYCLOBENZAPRINE HCL 5 MG TABLET PO (18:01)
[2021-12-03 21:41] VITALS: BP 114/57; PULSE 72; RESP 16; TEMP 36.9; O2SAT 96
[2021-12-04] MEDS: CYCLOBENZAPRINE HCL 5 MG TABLET PO ×2 (04:10→17:52)
[2021-12-04] MEDS: SODIUM CHLORIDE 0.9% IV 1,000 ML 100 ML IV CONT (05:05)
[2021-12-04 05:29] VITALS: BP 115/53; PULSE 77; RESP 16; TEMP 36.4; O2SAT 98
[2021-12-04 05:59] LABS: Hematocrit 34.8 % (37.0-47.0); Hemoglobin 11.8 g/dL (12.0-15.0); Mean Corpuscular HGB Conc 33.9 g/dl (32-36); Mean Corpuscular Hemoglobin 31.7 pg (26-34); Mean Corpuscular Volume 93.5 fl (80-100); Mean Platelet Volume 8.7 fl (7.4-10.4); Platelet Count Result 268 k/mm3 (150-375); Red Blood Count 3.72 M/mm3 (4.2-5.4); Red Cell Distribution Width 13.2 % (11.5-14.5); White Blood Count 7.5 K/mm3 (4.5-10.0)
[2021-12-04 06:13] LABS: Alanine Aminotransferase 47 U/L (6-35); Albumin Level 3.7 g/dL (3.5-5.1); Alkaline Phosphatase 108 U/L (38-126); Anion Gap 7 mmol/L (8-16); Aspartate Amino Transferase 46 U/L (14-36); Bilirubin,Total 1.5 mg/dL (0.2-1.3); Blood Urea Nitrogen 8 mg/dL (7-17); Calcium 8.4 mg/dL (8.4-10.2); Carbon Dioxide 24 mmol/L (22-30); Chloride 104 mmol/L (98-107); Estimated CRCL calculation 77 ml/min; Estimated Glomerular Filt Rate > 60; Glucose 79 mg/dL (65-110); Magnesium 1.9 mg/dL (1.6-2.3); Potassium 3.6 mmol/L (3.4-5.0); Sodium 135 mmol/L (137-145)
[2021-12-04 08:20] VITALS: O2SAT 97
[2021-12-04] MEDS: ACETAMINOPHEN/BUTALBITAL/CAFFEINE 325-50-40 MG TABLET (FIORICET) 1 TAB PO (08:35)
[2021-12-04 11:01] LABS: Glucose Point of Care 57 mg/dl (65-105)
[2021-12-04] MEDS: DEXTROSE 50% 25 GM/50 ML SYRINGE IV PUSH (11:03)
[2021-12-04 11:25] LABS: Lactic Acid Reflex 1.1 mmol/L (0.7-2.0)
[2021-12-04 11:30] LABS: Glucose Point of Care 138 mg/dl (65-105)
[2021-12-04 12:43] LABS: Hemoglobin A1C 5.7 % (<5.7)
[2021-12-04] MEDS: DEXTROSE 5%/0.45% SOD CHL 1,000 ML 100 ML IV CONT (12:48)
--- NOTE | 2021-12-04 13:29 | PM.IMPN ---
Progress Note: A&P Assessment and Plan (1) Acute diverticulitis: Code(s): K57.92 - Diverticulitis of intestine, part unspecified, without perforation or abscess without bleeding Status: Acute Assessment and Plan: Patient admitted for new onset uncomplicated diverticulitis. 12/04- Repeat CT showed slightly worsened sigmoid diverticulitis with no perforation or abscess. Abdominal ultrasound showed no etiology for abnormal liver function tests. Has been NPO since Thursday. She is willing to trial a clear liquid diet and we will advance her today and see how she does. Vital signs stable, WBC count normalized, lactic acid was 1.1 today. Did have an episode of hypoglycemia this morning. IV pain management IV fluid resuscitation Given patient's worsened pain and worsened CT findings, transitioned her to Primaxin IV from Zosyn. Consult to dietary placed on behalf of patient. Patient requested GI consultation, and we do appreciate their inputs. Transitioned pt to Dextrose and 1/2 NS, after 25gm IV push of 50% dextrose. Hypoglycemic protocol in place. AM labs. (2) H/O deep venous thrombosis: Code(s): Z86.718 - Personal history of other venous thrombosis and embolism Status: Acute Assessment and Plan: Will continue with patient's home Eliquis for her history of DVT. Patient denies lower extremity swelling, shortness of breath during her stay. (3) Transaminitis: Code(s): R74.01 - Elevation of levels of liver transaminase levels Status: Acute Assessment and Plan: Abdominal US unremarkable, 1.5 cm cyst in the liver. Hepatitis panel ordered Will continue to trend with daily labs. Additional Plan Blood cultures have shown no growth to date. SCDs for DVT prophylaxis. Hold meloxicam for now, patient agrees with this course of action. Subjective Date/time seen: 12/04/21 13:29 Patient was examined today with her daughter at the bedside today. She had questions regarding appropariate diet for diverticulosis, as well as estimated discharge. She states she does not have an appetite and gets spastic periumbilical pain which radiates down to the suprapubic and LLQ area. She would be amenable to a clear liquid diet. She had concerns about her CT scan, which we did discuss. I further discussed transitioning her antibiotics for broader coverage, abdominal ultrasound, GI consult, and adding back pain control. Her pain was at a 4/10 during our conversation. She is willing to talk to a accounts clerk for discharge planning. She denies chest pain, vomiting, shortness of breath. Interval history: 8-year-old female with history of hypertension, DVT, headache, mixed hyperlipidemia, nephrolithiasis, and mild depression, who presents to our care for abdominal pain x4 days. Review of Systems Review of Systems: All systems reviewed & are unremarkable except as noted in HPI and below Exam Narrative: GENERAL APPEARANCE: Alert and oriented x 3, in no apparent distress. HEENT: PERRL, EOMI. Sclerae anicteric. Moist mucous membranes. NECK: Supple. No JVD or obvious carotid bruits. RESPIRATORY: Respirations are nonlabored. Breath sounds are equal and clear bilaterally. No wheezes, Rhonchi, or rales. CARDIOVASCULAR: Regular rate and rhythm with normal S1-S2. No murmurs, gallops, or rubs. GASTROINTESTINAL: Soft, flat, and benign. No mass. Mild tenderness with palpation in the LLQ, periumbilic and suprapubic region. No organomegaly or hernia. Bowel sounds are present. SKIN: Warm, dry, well perfused. Good turgor. No lesions, nodules, or rashes noted. EXTREMITIES: No cyanosis, clubbing, or edema. Radial and pedal pulses intact. NEUROLOGICAL: Alert. Cranial nerves 2-12 are grossly intact. No gross focal deficits to casual conversation. PSYCHIATRIC: Pleasant and cooperative with normal mood and affect. Objective Data Vital Signs Vital Signs: Vital Signs - 24 hr
--- NOTE | 2021-12-04 13:59 | WPDGICN ---
Assessment and Plan Assessment and plan (1) Acute diverticulitis: Code(s): K57.92 - Diverticulitis of intestine, part unspecified, without perforation or abscess without bleeding Status: Acute Assessment and Plan: she has not had diverticulitis in the past. I expect explain to her diverticulosis and diverticular disease and how diverticulitis represents an abscess formed usually biopsy micro perforation. I explained that it was once thought that seeds and nuts could cause diverticulitis but that has been disproven. She has on a fairly high-fiber diet which I told her is the ideal diet to help avoid diverticulitis. Nevertheless, I explained her that when she is discharged we will have her on a low-fiber diet for least a week or so to prevent discomfort by roughage. I also told her that we would perform a colonoscopy in about 4 weeks when we know that her diverticulitis has resolved, primarily to rule out other pathology and also because it has been more than 10 years since her last colonoscopy. (2) H/O deep venous thrombosis: Code(s): Z86.718 - Personal history of other venous thrombosis and embolism Status: Acute Assessment and Plan: She is on apixaban chronically because of her history of deep vein thrombosis. She has had no signs of bleeding recently (3) Post-COVID syndrome: Code(s): B94.8 - Sequelae of other specified infectious and parasitic diseases Status: Acute Assessment and Plan: last week she had many symptoms that were suggestive of COVID including sore throat, nasal congestion, mild cough and fatigue. She did multiple tests all of which came back negative for COVID GI Consult Note Consult date/time: 12/04/21 13:59 HPI: Jennifer Flowers is a 71 year old female admitted with abdominal pain which began on Thursday. By Thursday the pain was worse and she eventually went to an urgent care center and then came to the hospital. A CT scan the abdomen was done that showed diverticulitis in the sigmoid colon. She states that she has never had diverticulitis in the past but she knows that she had had diverticulosis seen on a previous CT scan. 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 She is followed at [facility] for that condition. When she developed upper respiratory symptoms and felt somewhat feverish last week she did a couple of tests for COVID including a PCR test, all of which came back negative. Those symptoms actually have fairly well subsided. She was not running at actual fever at home. On admission here her white blood count was somewhat elevated but now is normal. She has been on Zosyn. The pain is improved but still sterilely uncomfortable in the left lower quadrant and mid abdomen as well. she has had no vomiting or nausea. He has been NPO since admission. Her last colonoscopy was about 11 years ago she believes that she had 2 innocent polyps removed that was done in [place]. I should add that she had diarrhea also towards the end of last week but did not see blood in her stools. She is anticoagulated, on apixaban because of deep vein thrombosis Review of Systems Review of Systems: All systems reviewed & are unremarkable except as noted in HPI and below PMFSH Past Medical History Medical History (Updated 12/04/21 @ 14:04 by Rudy Vieyra MD) Deep vein thrombosis (DVT) of left lower extremity Encounter for monitoring diuretic therapy H/O deep venous thrombosis Headache Mild depression Mixed hyperlipidemia Nephrolithiasis Obesity Post-COVID syndrome Prediabetes Scarring of lung Surgical History Surgical History H/O: hysterectomy (~2001) Hx of appendectomy (~1974) Hx of cholecystectomy (~2013) Family History Family History Mother HLD (hyperlipidemia) Breast cancer Hypertension Lung cancer Father
[2021-12-04 14:00] VITALS: BP 130/60; PULSE 77; RESP 20; TEMP 36.8; O2SAT 99
[2021-12-04 14:45] LABS: Hepatitis B Surface Antigen Negative (Negative)
[2021-12-04 14:51] LABS: HAV RESULT Negative (Negative); Hepatitis B Core IgM Result Negative (Negative)
[2021-12-04 15:02] LABS: Hepatitis C Virus Antibody Negative (Negative)
[2021-12-04] MEDS: APIXABAN 5 MG TABLET PO (17:03)
[2021-12-04 17:05] LABS: Glucose Point of Care 91 mg/dl (65-105)
[2021-12-04 20:49] VITALS: O2SAT 96
[2021-12-04 22:00] VITALS: BP 105/50; PULSE 74; RESP 16; TEMP 36.6; O2SAT 97
[2021-12-04 23:28] LABS: Glucose Point of Care 108 mg/dl (65-105)
[2021-12-05] MEDS: DEXTROSE 5%/0.45% SOD CHL 1,000 ML 100 ML IV CONT (00:06)
[2021-12-05] MEDS: CYCLOBENZAPRINE HCL 5 MG TABLET PO ×2 (02:37→11:46)
[2021-12-05 05:39] VITALS: BP 118/60; PULSE 71; RESP 16; TEMP 36.6; O2SAT 96
[2021-12-05 05:42] LABS: Glucose Point of Care 139 mg/dl (65-105)
[2021-12-05 06:14] LABS: Basophils Absolute Auto 0.1 K/mm3 (0.0-0.1); Basophils Percent Auto 0.8 % (0.2-1.2); Eosinophils Absolute Auto 0.1 K/mm3 (0-0.3); Eosinophils Percent Auto 2.2 % (0-4.4); Hematocrit 36.6 % (37.0-47.0); Hemoglobin 12.1 g/dL (12.0-15.0); Immature Granulocyte Absolute 0.02 K/mm3 (0.00-0.031); Immature Granulocyte Percent A 0.3 % (0-0.5); Lymphocytes Absolute Auto 2.04 K/mm3 (0.9-3.2); Lymphocytes Percent Auto 34.3 % (18.3-44.2); Mean Corpuscular HGB Conc 33.1 g/dl (32-36); Mean Corpuscular Hemoglobin 31.3 pg (26-34); Mean Corpuscular Volume 94.6 fl (80-100); Mean Platelet Volume 8.7 fl (7.4-10.4); Monocytes Absolute Auto 0.7 K/mm3 (0.1-0.6); Monocytes Percent Auto 11.6 % (2.6-8.5); Neutrophils Percent Auto 50.8 % (45.5-73.1); Platelet Count Result 310 k/mm3 (150-375); Red Blood Count 3.87 M/mm3 (4.2-5.4); Red Cell Distribution Width 13.4 % (11.5-14.5); White Blood Count 5.9 K/mm3 (4.5-10.0)
[2021-12-05 06:35] LABS: Alanine Aminotransferase 43 U/L (6-35); Albumin Level 3.7 g/dL (3.5-5.1); Alkaline Phosphatase 119 U/L (38-126); Anion Gap 6 mmol/L (8-16); Aspartate Amino Transferase 37 U/L (14-36); Bilirubin,Total 0.7 mg/dL (0.2-1.3); Blood Urea Nitrogen 6 mg/dL (7-17); Calcium 8.7 mg/dL (8.4-10.2); Carbon Dioxide 28 mmol/L (22-30); Chloride 104 mmol/L (98-107); Estimated CRCL calculation 68 ml/min; Estimated Glomerular Filt Rate > 60; Glucose 119 mg/dL (65-110); Potassium 3.3 mmol/L (3.4-5.0); Sodium 138 mmol/L (137-145)
--- NOTE | 2021-12-05 07:25 | WPDGIPROGNO ---
Progress Note: A&P Assessment and Plan (1) Acute diverticulitis: Code(s): K57.92 - Diverticulitis of intestine, part unspecified, without perforation or abscess without bleeding Status: Acute Assessment and Plan: Patient admitted for new onset uncomplicated diverticulitis. 12/04- Repeat CT showed slightly worsened sigmoid diverticulitis with no perforation or abscess. Abdominal ultrasound showed no etiology for abnormal liver function tests. Has been NPO since Thursday. She is willing to trial a clear liquid diet and we will advance her today and see how she does. Vital signs stable, WBC count normalized, lactic acid was 1.1 today. Did have an episode of hypoglycemia this morning. 12/05 she did well with clear liquids and will advance her today, full liquids for breakfast and then low residue. she should be able to go home today with oral antibiotics for 7 more days. We will then have her come in for colonoscopy in about 4 weeks. (2) H/O deep venous thrombosis: Code(s): Z86.718 - Personal history of other venous thrombosis and embolism Status: Acute Assessment and Plan: Will continue with patient's home Eliquis for her history of DVT. Patient denies lower extremity swelling, shortness of breath during her stay. (3) Transaminitis: Code(s): R74.01 - Elevation of levels of liver transaminase levels Status: Acute Assessment and Plan: Abdominal US unremarkable, 1.5 cm cyst in the liver. Hepatitis serology is negative Additional Plan Subjective Date/time seen: Jennifer Flowers is a 71 year old female? admitted with abdominal pain which began on Thursday.? By Thursday the pain was worse and she eventually went to an urgent care center and then came to the hospital.? A CT scan the abdomen was done that showed diverticulitis in the sigmoid colon.? She states that she has never had diverticulitis in the past but she knows that she had had diverticulosis seen on a previous CT scan.? 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 She is followed at [facility] for that condition.? When she developed upper respiratory symptoms and felt somewhat feverish last week she did a couple of tests for COVID including a PCR test, all of which came back negative.? Those symptoms actually have fairly well subsided.? She was not running at actual fever at home.? On admission here her white blood count was somewhat elevated but now is normal.? She has been on Zosyn.? The pain is improved but still sterilely uncomfortable in the left lower quadrant and mid abdomen as well. she has had no vomiting or nausea.? He has been NPO since admission.? Her last colonoscopy was about 11 years ago she believes that she had 2 innocent polyps removed that was done in [place]. ? I should add that she had diarrhea also towards the end of last week but did not see blood in her stools.? She is anticoagulated, on apixaban because of deep vein thrombosis 12/05/21 07:25 she states that she has not slept well but did sleep the last several hours. She is feeling better but still sore in the lower left side. She tolerated clear liquids last night. Review of Systems Review of Systems: All systems reviewed & are unremarkable except as noted in HPI and below Exam Const: General: alert Orientation/consciousness: patient oriented x3 Resp: Auscultation: clear to auscultation bilaterally Cardio: Rhythm: regular rhythm GI: GI Palp: Yes Soft to palpation, Yes Tenderness to palpation present (GI) ( Left lower quadrant), No Guarding due to palpation present (GI) and Yes No hepatosplenomegaly present Auscultation: normal bowel sounds Neuro: General: patient oriented x3 Objective Data Vital Signs Vital Signs: Vital Signs - 24 hr 12/04/21 08:25 12/04/21 14:00 12/04/21 08:20 Temperature 36.8 C Pulse Rate 77 Respiratory Rate 20 Blood Pressure 130/60 Pulse Oximetry 99 97 Oxygen Delive
--- NOTE | 2021-12-05 08:03 | PM.DS ---
DS: Admitting Diagnosis Discharge Date 12/05/2021 1600 Admitting Diagnosis Diverticulitis DS: Discharge Diagnosis Discharge Diagnosis (1) Acute diverticulitis: Code(s): K57.92 - Diverticulitis of intestine, part unspecified, without perforation or abscess without bleeding Status: Acute Assessment and Plan: Patient admitted for new onset uncomplicated diverticulitis. 12/04- Repeat CT showed slightly worsened sigmoid diverticulitis with no perforation or abscess. Abdominal ultrasound showed no etiology for abnormal liver function tests. Has been NPO since Thursday. She is willing to trial a clear liquid diet and we will advance her today and see how she does. Vital signs stable, WBC count normalized, lactic acid was 1.1 today. Did have an episode of hypoglycemia this morning. IV pain management & fluid resuscitation Given patient's worsened pain and worsened CT findings, transitioned her to Primaxin IV from Zosyn. Consult to dietary placed on behalf of patient. Patient requested GI consultation, and we do appreciate their inputs. ?12/05? Patient was complaining of increasing pain, repeat CT did show improved sigmoid diverticulitis, WBC is normal, exam was improved, and patient's pain has subsequently improved. During my encounter with patient today, dietary was providing patient education. She did well with clear liquids and will advance her today, full liquids for breakfast and then low residue. If she tolerates, then she can go home today with oral antibiotics (Cipro/Flagyl) for 7 more days.? We will then have her?follow with GI for colonoscopy in about 4 weeks. I discussed return precautions with the patient and the patient acknowledged understanding of the plan. Plan is for discharge after dinner. (2) H/O deep venous thrombosis: Code(s): Z86.718 - Personal history of other venous thrombosis and embolism Status: Acute Assessment and Plan: Will continue with patient's home Eliquis for her history of DVT. Patient denies lower extremity swelling, shortness of breath during her stay. (3) Transaminitis: Code(s): R74.01 - Elevation of levels of liver transaminase levels Status: Acute Assessment and Plan: Abdominal US unremarkable, 1.5 cm cyst in the liver. Hepatitis panel normal. DS: Summary Hospital Course Reason for hospitalization: Acute diverticulitis Hospital Course: See above for full hospital course Status at Discharge Cognitive/behavioral status at discharge: Progressing back to baseline Time Spent with Patient Time attestation: Total time spent providing and/or coordinating discharge services: 45 mins Exam Narrative: GENERAL APPEARANCE: Alert and oriented x 3, in no apparent distress. HEENT: PERRL, EOMI. Sclerae anicteric. Moist mucous membranes. NECK: Supple. No JVD or obvious carotid bruits. RESPIRATORY: Respirations are nonlabored. Breath sounds are equal and clear bilaterally. No wheezes, Rhonchi, or rales. CARDIOVASCULAR: Regular rate and rhythm with normal S1-S2. No murmurs, gallops, or rubs. GASTROINTESTINAL: Soft, flat, and benign. No mass, tenderness, guarding, or rebound. No organomegaly or hernia. Bowel sounds are present. SKIN: Warm, dry, well perfused. Good turgor. No lesions, nodules, or rashes noted. EXTREMITIES: No cyanosis, clubbing, or edema. Pedal pulses intact. NEUROLOGICAL: Alert. Cranial nerves 2-12 are grossly intact. No gross focal deficits to casual conversation. PSYCHIATRIC: Normal mood and affect. DS: Data Data Completed and Pending Labs on day of discharge: Labs from last 24 hours 12/05/21 12/05/21 12/05/21 05:44 05:44 05:37 WBC 5.9 RBC 3.87 L Hgb 12.1 Hct 36.6 L MCV 94.6 MCH 31.3 MCHC 33.1 RDW 13.4 Plt Count 310 MPV 8.7 Immature Gran % (Auto) 0.3 Neut % (Auto) 50.8 Lymph % (Auto) 34.3 [place] % (Auto) 11.6 H Eos % (Auto) 2.2 Baso %
[2021-12-05 08:28] VITALS: RESP 16; O2SAT 97
[2021-12-05] MEDS: APIXABAN 5 MG TABLET PO ×2 (08:28→17:19)
[2021-12-05] MEDS: ATORVASTATIN 20 MG TABLET PO (08:28)
[2021-12-05] MEDS: hydroCHLOROthiazide 25 MG TABLET PO (08:28)
[2021-12-05 11:52] LABS: Glucose Point of Care 91 mg/dl (65-105)
[2021-12-05] MEDS: POTASSIUM CHLORIDE 20 MEQ PACKET (FOR LIQUID) 40 MEQ PO (13:15)
[2021-12-05 14:00] VITALS: BP 127/60; PULSE 87; RESP 16; TEMP 36.5; O2SAT 95
--- NOTE | 2021-12-05 14:16 | PCNSR ---
On 12/05/21, the student,Catalino Knight, provided care and completed [facility] documentation on this patient. I have reviewed the student's documentation and agree with the findings.
[2021-12-05 17:46] LABS: Glucose Point of Care 76 mg/dl (65-105)
== END 2021-12-05 19:25 | disposition home or self-care (01) | DRG 392 ==
LOC: ANHED 17:39 → ANH3MEDSUR 18:10
PROVIDERS: Nurse Practitioner Family; Admitting Provider Chiropractor; Emergency Provider Emergency Medicine; PCP Family Medicine; Visit Provider Student in an Organized Health Care Education/Training Program
DX: K57.32 Diverticulitis of large intestine without perforation or abscess without bleeding (principal); E78.2 Mixed hyperlipidemia; E16.2 Hypoglycemia, unspecified; R74.01 Elevation of levels of liver transaminase levels; E66.9 Obesity, unspecified; Z68.38 Body mass index [BMI] 38.0-38.9, adult; Z86.718 Personal history of other venous thrombosis and embolism; Z90.49 Acquired absence of other specified parts of digestive tract; Z90.710 Acquired absence of both cervix and uterus; Z86.16 Personal history of COVID-19
CPT/HCPCS: 36415; 71045; 71046; 74176; 76700; 80053; 80074; 81001; 82948; 83036; 83605; 83690; 83735; 85025; 85027; 87040; 87081; 87086; 87088; 87426; 87804; 87880; 93005; 96361; 96365; 96366; 96367; 96375; 99285; A9270; C9803; G0378; J0131; J0743; J1170; J2543; J7030

== ENCOUNTER 2022-05-06 17:13 | Emergency (ER) | payer MEDICARE, SELFPAY ==
--- NOTE | 2022-05-06 17:18 | ED.URI ---
HPI - URI/Sore Throat General Chief Complaint: Upper Respiratory Infection Stated Complaint: sinus drainage, sore throat, cough Time Seen by Provider: 05/06/22 17:18 Source: patient Mode of arrival: ambulatory Limitations: no limitations History of Present Illness HPI Narrative: Ms. Flowers is a 72-year-old female patient presenting to the clinic today with complaints of sinus drainage, sore throat, and cough for over 1 week. She reports she also has had sinus pressure. No known fever or chills. She states she feels rundown MD elicited complaint: cough, sore throat and nasal congestion Related Data Home Medications Medication Instructions Recorded Confirmed atorvastatin 40 mg tablet 20 mg PO DAILY 02/08/21 12/02/21 hydrochlorothiazide 25 mg tablet 1 tablet PO DAILY 12/01/21 12/02/21 Allergies Allergy/AdvReac Type Severity Reaction Status Date / Time Cat Dander Allergy Mild Unknown Uncoded 12/02/21 19:04 Review of Systems Review of Systems: Pertinent positives per HPI. Patient denies any fever, chills, rash, headache, visual changes, dizziness, shortness of breath, chest pain, palpitations, nausea, vomiting, diarrhea, constipation, abdominal pain, or any urinary issues. [facility] Past Medical History Medical History Deep vein thrombosis (DVT) of left lower extremity Encounter for monitoring diuretic therapy H/O deep venous thrombosis Headache Mild depression Mixed hyperlipidemia Nephrolithiasis Obesity Post-COVID syndrome Prediabetes Scarring of lung Surgical History Surgical History H/O: hysterectomy (~2001) Hx of appendectomy (~1974) Hx of cholecystectomy (~2013) Family History Family History Mother HLD (hyperlipidemia) Breast cancer Hypertension Lung cancer Father Heart disease Social History Social History Smoking status: Never smoker Second hand tobacco smoke exposure: No Alcohol intake: never Substance use: never Substance use type: does not use Additional occupation/education comments: Realtor Gender identity (if verbalized by the patient): Female Spiritual care concerns: No Comments At the time of my signature, I reviewed and agree with the nursing past medical, surgical, social, and family history. There is no relevant family history pertinent to the patient complaint. Exam Narrative: General: Well-developed, well nourished, in no apparent distress Head: Normocephalic, atraumatic Eyes: Pupils equally round and reactive to light bilaterally, EOM intact, sclera and conjunctive clear, no discharge, lids normal Ears: TMs intact and clear, ear canals clear, no drainage, grossly hearing normal. Nose: Nares patent, green nasal discharge, severe inflammation, maxillary and frontal sinus tenderness. Mouth: Oral pharynx without lesions or masses, good dentition, MMM. Postnasal drip Neck: Supple, trachea midline, no enlargement of anterior or posterior cervical nodes, no thyroid masses or goiter palpable. Cardio: Regular rate and rhythm, s1 and s2 normal, no murmur appreciated. Resp: Clear to auscultation bilaterally, no rhonchi, rales, wheezing or rubs Course Course Emergency Course: Portions of this record may have been created with voice recognition software. Level of Care: Express Care Visit Vital Signs Vital signs: Vital Signs Temperature 36.7 C 05/06/22 17:22 Pulse Rate 80 05/06/22 17:22 Respiratory Rate 16 05/06/22 17:22 Blood Pressure 106/91 H 05/06/22 17:22 Pulse Oximetry 99 05/06/22 17:22 Temperature 36.7 C 05/06/22 17:22 Pulse Rate 80 05/06/22 17:22 Respiratory Rate 16 05/06/22 17:22 Blood Pressure 106/91 H 05/06/22 17:22 Pulse Oximetry 99 05/06/22 17:22 Vital signs revie
[2022-05-06 17:22] VITALS: BP 106/91; PULSE 80; RESP 16; TEMP 36.7; O2SAT 99
== END 2022-05-06 17:30 | disposition home or self-care (01) ==
PROVIDERS: Emergency Provider Nurse Practitioner Family; PCP Family Medicine
DX: J01.90 Acute sinusitis, unspecified (principal); E78.2 Mixed hyperlipidemia; R73.03 Prediabetes; Z86.16 Personal history of COVID-19; E66.9 Obesity, unspecified; Z68.45 Body mass index [BMI] 70 or greater, adult; Z86.718 Personal history of other venous thrombosis and embolism
CPT/HCPCS: 99213; G0463

== ENCOUNTER 2023-07-03 12:08 | Emergency (ER) | payer MEDICARE, SELFPAY ==
--- NOTE | 2023-07-03 12:27 | ED.URI ---
HPI - URI/Sore Throat General Chief Complaint: Upper Respiratory Infection Stated Complaint: FEVER/COUGH Time Seen by Provider: 07/03/23 13:03 Source: patient, RN notes reviewed and old records reviewed Mode of arrival: ambulatory Limitations: no limitations History of Present Illness HPI Narrative: 73-year-old female presents to the [facility] with a cough, sinus congestion, sore throat and ear pressure since yesterday. Took NyQuil last night. Took 1 ibuprofen today to help with her fever of 101 this morning. Patient denies any chest pain shortness denies pain. Educated patient that if she is on Eliquis she should not be taking ibuprofen Onset (ago): day(s) (1) Related Data Home Medications Medication Instructions Recorded Confirmed atorvastatin 40 mg tablet 20 mg PO DAILY 02/08/21 07/03/23 hydrochlorothiazide 25 mg tablet 1 tablet PO DAILY 12/01/21 07/03/23 Allergies Allergy/AdvReac Type Severity Reaction Status Date / Time Cat Dander Allergy Mild Unknown Uncoded 07/03/23 12:34 Review of Systems Review of Systems: All systems reviewed & are unremarkable except as noted in HPI and below Constitutional: Constitutional: Reports no additional constitutional complaints Eyes: Eyes: Reports no additional eye complaints ENT: Reports as per HPI Cardiovascular: Cardiovascular: Reports no additional cardiovascular complaints, Denies chest pain and Denies dyspnea Respiratory: Respiratory: Reports no additional respiratory complaints, Denies chest congestion, Denies cough and Denies dyspnea Gastrointestinal: Gastrointestinal: Reports no additional gastrointestinal complaints, Denies abdominal pain, Denies nausea and Denies vomiting Musculoskeletal: Musculoskeletal: Reports no additional musculoskeletal complaints Integumentary/Breasts: Skin/Breast: Reports system reviewed and no additional complaints, except as docu Neurologic: Reports system reviewed and no additional complaints, except as documented Psychiatric: Psychiatric: Reports no additional psychiatric complaints Allergic/Immunologic: Allergic/Immunologic: Reports no additional allergic/immunologic complaints PMFSH Past Medical History Medical History Deep vein thrombosis (DVT) of left lower extremity H/O deep venous thrombosis Mild depression Mixed hyperlipidemia Nephrolithiasis Obesity Post-COVID syndrome Prediabetes Recurrent UTI Scarring of lung Transaminitis Surgical History Surgical History H/O: hysterectomy (~2001) Hx of appendectomy (~1974) Hx of cholecystectomy (~2013) Family History Family History Mother HLD (hyperlipidemia) Breast cancer Hypertension Lung cancer Father Heart disease Social History Social History Smoking status: Never smoker Second hand tobacco smoke exposure: No Alcohol intake: never Substance use: never Substance use type: does not use Lack of Transportation: No Lack of Food: Never True Current Housing: I Have Housing Concerned About Future Housing: No Difficulty Paying Gas/Electric Bills: No Difficulty Paying for Meds: No Currently Unemployed: No Education: Master's Degree or Higher Difficulty w/ Childcare or Family Care: No Living arrangements: with family 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 There is no relevant family history pertinent to the patient complaint. Exam Const: Gener
[2023-07-03 12:32] VITALS: BP 126/71; PULSE 78; RESP 16; TEMP 36.5; O2SAT 100
== END 2023-07-03 13:18 | disposition home or self-care (01) ==
PROVIDERS: Emergency Provider Nurse Practitioner; PCP Family Medicine
DX: J06.9 Acute upper respiratory infection, unspecified (principal); J32.9 Chronic sinusitis, unspecified; Z20.822 Contact with and (suspected) exposure to COVID-19; E78.2 Mixed hyperlipidemia; R73.03 Prediabetes; E66.9 Obesity, unspecified; Z68.34 Body mass index [BMI] 34.0-34.9, adult; Z86.718 Personal history of other venous thrombosis and embolism
CPT/HCPCS: 87081; 87426; 87804; 87880; 99213; C9803; G0463

== ENCOUNTER 2023-11-28 17:45 | Emergency (ER) | payer MEDICARE, SELFPAY ==
--- NOTE | 2023-11-28 17:52 | ED.GENADULT ---
HPI - General Adult General Chief complaint: Skin/Abscess/Foreign Body Stated complaint: INSECT BITE Time Seen by Provider: 11/28/23 17:52 Source: patient Mode of arrival: ambulatory Limitations: no limitations History of Present Illness HPI narrative: 73-year-old female patient presents to the [facility] with complaints of bug bites or insect bite. Patient states that she was helping an elderly friend in [facility] missed this morning do some yd work and thinks she might have gotten bitten. Patient states on her way home she noticed that her left ear with swelling and getting red as well as has some itching to the top of the left shoulder. Denies any chest pain, shortness of breath. Denies any trouble breathing or swallowing. Patient states she is not taking any medication for the reaction yet because she was driving. Patient states when she got in to town this came straight here for evaluation. Related Data Home Medications Medication Instructions Recorded Confirmed hydrochlorothiazide 25 mg tablet 1 tablet PO DAILY 12/01/21 11/28/23 pravastatin 20 mg tablet 20 mg PO DAILY 11/28/23 11/28/23 spironolactone 25 mg tablet 25 mg PO DAILY 11/28/23 11/28/23 Allergies Allergy/AdvReac Type Severity Reaction Status Date / Time Cat Dander Allergy Mild Unknown Uncoded 11/28/23 17:54 Review of Systems Review of Systems: CONSTITUTIONAL: Denies fever, chills, or sweats. EYES: Denies visual changes, redness, or discharge. ENT: Denies rhinorrhea, congestion, sore throat, or otalgia. CARDIOVASCULAR: Denies chest pain, palpitations, or edema. RESPIRATORY: Denies cough or dyspnea. GASTROINTESTINAL: Denies abdominal pain, nausea, vomiting, or diarrhea. GENITOURINARY: Denies dysuria or hematuria. SKIN: Positive insect bite with itching to left shoulder and left ear. MUSCULOSKELETAL: Denies back pain, joint pain, or myalgia. NEUROLOGIC: Denies headache, numbness, or weakness. PSYCHIATRIC: Denies anxiety or depression. [facility] Past Medical History Medical History Deep vein thrombosis (DVT) of left lower extremity H/O deep venous thrombosis Mild depression Mixed hyperlipidemia Nephrolithiasis Obesity Post-COVID syndrome Prediabetes Recurrent UTI Scarring of lung Transaminitis Surgical History Surgical History H/O: hysterectomy (~2001) Hx of appendectomy (~1974) Hx of cholecystectomy (~2013) Family History Family History Mother HLD (hyperlipidemia) Breast cancer Hypertension Lung cancer Father Heart disease Social History Social History Smoking status: Never smoker Second hand tobacco smoke exposure: No Alcohol intake: never Substance use: never Substance use type: does not use Lack of Transportation: No Lack of Food: Never True Current Housing: I Have Housing Concerned About Future Housing: No Difficulty Paying Gas/Electric Bills: No Difficulty Paying for Meds: No Currently Unemployed: No Education: Master's Degree or Higher Difficulty w/ Childcare or Family Care: No Living arrangements: with family Occupation/Education: occupation Additional occupation/education comments: Realtor Gender identity (if verbalized by the patient): Female Sexual Orientation (if Verbalized by the Patient): Straight or Heterosexual Spiritual care concerns: No Agree to blood products: Yes Comments At the time of my signature I agree with nursing past medical history, surgical, social, and family history. There is no relevant family history pertinent to the presenting complaint. Exam Narrative: GENERAL: Well-appearing, well-nourished, and in no acute distress. HEAD: Normocephalic, atraumatic. EYES: PERRLA and EOMI. ENT: Nares clear, no rhinorrhea or epistaxis. Mucous mem
[2023-11-28 17:59] VITALS: BP 132/76; PULSE 77; RESP 16; TEMP 36.1; O2SAT 100
[2023-11-28 18:00] VITALS: BP 132/76; PULSE 77; RESP 16; TEMP 36.1; O2SAT 100
[2023-11-28] MEDS: diphenhydrAMINE HCl CAP 25 MG CAPSULE PO (18:12)
== END 2023-11-28 18:17 | disposition home or self-care (01) ==
PROVIDERS: Emergency Provider Nurse Practitioner Family; PCP Family Medicine
DX: S00.462A Insect bite (nonvenomous) of left ear, initial encounter (principal); S40.262A Insect bite (nonvenomous) of left shoulder, initial encounter; W57.XXXA Bitten or stung by nonvenomous insect and other nonvenomous arthropods, initial encounter; E78.2 Mixed hyperlipidemia; E66.9 Obesity, unspecified; Z68.34 Body mass index [BMI] 34.0-34.9, adult; R73.03 Prediabetes; Z86.718 Personal history of other venous thrombosis and embolism
CPT/HCPCS: 99212; A9270; G0463

== ENCOUNTER 2024-03-23 18:14 | Emergency (ER) | payer MEDICARE, SELFPAY ==
[2024-03-23 18:26] VITALS: BP 133/78; PULSE 87; RESP 16; TEMP 36.5; O2SAT 97
[2024-03-23 18:34] VITALS: BP 133/78; PULSE 87; RESP 16; TEMP 36.5; O2SAT 97
--- NOTE | 2024-03-23 18:34 | ED.URI ---
HPI - URI/Sore Throat General Chief Complaint: Upper Respiratory Infection Stated Complaint: FEVER/COUGH/CHEST Time Seen by Provider: 03/23/24 18:27 Source: patient and RN notes reviewed Mode of arrival: ambulatory Limitations: no limitations History of Present Illness HPI Narrative: Patient presents today complaining of cough, sore throat, postnasal drip since yesterday, worse today. Reports fever up to 100 as well. States her 2-year-old grandson whom she was visiting a sick with similar symptoms. Denies nasal congestion, rhinorrhea, shortness breath. She took a dose of DayQuil 1 hour prior to arrival for her symptoms. She does have history of asthma symptoms when she is around cats, but none otherwise. Related Data Home Medications Medication Instructions Recorded Confirmed hydrochlorothiazide 25 mg tablet 1 tablet PO DAILY 12/01/21 03/23/24 pravastatin 20 mg tablet 20 mg PO DAILY 11/28/23 03/23/24 spironolactone 25 mg tablet 25 mg PO DAILY 11/28/23 03/23/24 Allergies Allergy/AdvReac Type Severity Reaction Status Date / Time cat dander Allergy Other Verified 03/23/24 18:24 Review of Systems Review of Systems: CONSTITUTIONAL: Denies body aches, fever, chills, or sweats. EYES: Denies visual changes, redness, or discharge. ENT: Denies rhinorrhea, congestion, or otalgia.+ sore throat, postnasal drip CARDIOVASCULAR: Denies chest pain, palpitations, or edema. RESPIRATORY: Denies dyspnea.+ cough GASTROINTESTINAL: Denies abdominal pain, nausea, vomiting, or diarrhea. GENITOURINARY: Denies dysuria or hematuria. SKIN: Denies rash, itching, or wounds. MUSCULOSKELETAL: Denies back pain, joint pain, or myalgia. NEUROLOGIC: Denies headache, numbness, tingling, or weakness. PSYCH: Denies depression or anxiety. [facility] Past Medical History Medical History Deep vein thrombosis (DVT) of left lower extremity H/O deep venous thrombosis Mild depression Mixed hyperlipidemia Nephrolithiasis Obesity Post-COVID syndrome Prediabetes Recurrent UTI Scarring of lung Transaminitis Surgical History Surgical History H/O: hysterectomy (~2001) Hx of appendectomy (~1974) Hx of cholecystectomy (~2013) Family History Family History Mother HLD (hyperlipidemia) Breast cancer Hypertension Lung cancer Father Heart disease Social History Social History Smoking status: Never smoker Second hand tobacco smoke exposure: No Alcohol intake: never Substance use: never Substance use type: does not use Lack of Transportation: No Lack of Food: Never True Current Housing: I Have Housing Concerned About Future Housing: No Difficulty Paying Gas/Electric Bills: No Difficulty Paying for Meds: No Currently Unemployed: No Education: Master's Degree or Higher Difficulty w/ Childcare or Family Care: No Living arrangements: with family Occupation/Education: occupation Additional occupation/education comments: Realtor Gender identity (if verbalized by the patient): Female Sexual Orientation (if Verbalized by the Patient): Straight or Heterosexual Spiritual care concerns: No Agree to blood products: Yes Comments At time of signature, I have reviewed and agree with nursing past medical, surgical, social and family history unless otherwise noted. Please see nursing chart for further information. There is no relevant family history pertinent to the presenting complaint Exam Narrative: GENERAL: Mildly-appearing, well-nourished, and in no acute distress. HEAD: Normocephalic, atraumatic. EYES: EOMI. No redness or drainage. Conjunctivae normal. ENT: Mucous membranes pink and moist. Nares clear. No rhinorrhea. TMs normal bilaterally. Throat normal with smal
[2024-03-23 18:57] LABS: EDCOVIDSCREEN Negative (Negative); EDINFLUASCREEN Negative (Negative); EDINFLUBSCREEN Negative (Negative); EDSTREPNEGPOS1 Negative (Negative)
== END 2024-03-23 18:56 | disposition home or self-care (01) ==
PROVIDERS: Emergency Provider Nurse Practitioner
DX: J02.9 Acute pharyngitis, unspecified (principal); Z20.822 Contact with and (suspected) exposure to COVID-19; E78.2 Mixed hyperlipidemia; R73.03 Prediabetes; E66.9 Obesity, unspecified; Z68.34 Body mass index [BMI] 34.0-34.9, adult; Z86.718 Personal history of other venous thrombosis and embolism
CPT/HCPCS: 87081; 87426; 87804; 87880; 99213; G0463

== ENCOUNTER 2024-03-26 10:00 | Emergency (ER) | payer MEDICARE, SELFPAY ==
[2024-03-26 10:16] VITALS: BP 163/88; PULSE 89; RESP 16; TEMP 37; O2SAT 98
--- NOTE | 2024-03-26 10:44 | ED.URI ---
HPI - URI/Sore Throat General Chief Complaint: Upper Respiratory Infection Stated Complaint: Cough/Sore Throat/Back Pain/Leg Pain Time Seen by Provider: 03/26/24 10:25 Source: patient Mode of arrival: ambulatory Limitations: no limitations History of Present Illness HPI Narrative: 74-year-old female presents with complaint of cough, congestion, body aches, fatigue, generalized weakness for 5 days. Patient was seen here 5 days ago and had negative COVID, flu testing. Patient requesting that she is retested. Also complaining that back aches are really bad in her back. No other urinary symptoms but requesting she be checked for a urinary tract infection. Denies nausea vomiting diarrhea. All systems reviewed and negative except as noted above. Related Data Home Medications Medication Instructions Recorded Confirmed hydrochlorothiazide 25 mg tablet 1 tablet PO DAILY 12/01/21 03/26/24 pravastatin 20 mg tablet 20 mg PO DAILY 11/28/23 03/26/24 spironolactone 25 mg tablet 25 mg PO DAILY 11/28/23 03/26/24 Allergies Allergy/AdvReac Type Severity Reaction Status Date / Time cat dander Allergy Other Verified 03/23/24 18:24 Review of Systems Review of Systems: CONSTITUTIONAL: Denies fever, chills, or sweats. Reports fatigue. EYES: Denies visual changes, redness, or discharge. ENT: Reports rhinorrhea, congestion, sore throat. Denies otalgia. CARDIOVASCULAR: Denies chest pain, palpitations, or edema. RESPIRATORY: Reports cough. Denies dyspnea. GASTROINTESTINAL: Denies abdominal pain, nausea, vomiting, or diarrhea. GENITOURINARY: Denies dysuria or hematuria. SKIN: Denies rash or itching. MUSCULOSKELETAL: Reports low back pain, joint pain. Reports myalgia. NEUROLOGIC: Denies headache, numbness, or weakness. PSYCHIATRIC: Denies anxiety or depression. All other systems reviewed are negative, except as documented in HPI. [facility] Past Medical History Medical History Deep vein thrombosis (DVT) of left lower extremity H/O deep venous thrombosis Mild depression Mixed hyperlipidemia Nephrolithiasis Obesity Post-COVID syndrome Prediabetes Recurrent UTI Scarring of lung Transaminitis Surgical History Surgical History H/O: hysterectomy (~2001) Hx of appendectomy (~1974) Hx of cholecystectomy (~2013) Family History Family History Mother HLD (hyperlipidemia) Breast cancer Hypertension Lung cancer Father Heart disease Social History Social History Smoking status: Never smoker Second hand tobacco smoke exposure: No Alcohol intake: never Substance use: never Substance use type: does not use Lack of Transportation: No Lack of Food: Never True Current Housing: I Have Housing Concerned About Future Housing: No Difficulty Paying Gas/Electric Bills: No Difficulty Paying for Meds: No Currently Unemployed: No Education: Master's Degree or Higher Difficulty w/ Childcare or Family Care: No Living arrangements: with family Occupation/Education: occupation Additional occupation/education comments: Realtor Gender identity (if verbalized by the patient): Female Sexual Orientation (if Verbalized by the Patient): Straight or Heterosexual Spiritual care concerns: No Agree to blood products: Yes Comments At time of signature, agree with nursing past medical, surgical, social and family history. There is no relevant family history pertinent to the presenting complaint. Exam Narrative: GENERAL: This is a well-nourished, well-developed patient, patient ill-appearing but in no acute distress. HEAD: normocephalic, atraumatic. EYES: PERRL. Sclera clear/white. Vision is grossly intact. EARS: External ears normal, auditory canals clear and without dr
[2024-03-28 14:28] LABS: EDUAAPPEAR Clear; EDUABILI 1+ (Negative); EDUABLOOD 1+ (Negative); EDUACOLOR1 Yellow; EDUAGLUCOSE Negative (Negative); EDUAKETONE Negative (Negative); EDUALEUKO Negative (Negative); EDUANITRATE Negative (Negative); EDUAPH 5.5; EDUAPROTEIN 1+ (Negative); EDUASPGRAVITY 1.025; EDUAUROBILI 0.2
[2024-03-28 14:28] LABS: EDINFLUASCREEN Positive (Negative); EDINFLUBSCREEN Negative (Negative); EDSTREPNEGPOS1 Negative (Negative)
== END 2024-03-26 10:45 | disposition home or self-care (01) ==
PROVIDERS: Emergency Provider Nurse Practitioner Family; PCP Family Medicine
DX: J10.1 Influenza due to other identified influenza virus with other respiratory manifestations (principal); Z20.822 Contact with and (suspected) exposure to COVID-19; Z86.718 Personal history of other venous thrombosis and embolism; E66.9 Obesity, unspecified; Z68.34 Body mass index [BMI] 34.0-34.9, adult
CPT/HCPCS: 81003; 87081; 87086; 87635; 87804; 87880; 99213; G0463

== ENCOUNTER 2024-09-06 19:06 | Emergency (ER) | payer MEDICARE, SELFPAY ==
--- NOTE | 2024-09-06 19:08 | ED.URI ---
HPI - URI/Sore Throat General Chief Complaint: Upper Respiratory Infection Stated Complaint: sorethroat, fever, congestion Time Seen by Provider: 09/06/24 19:08 Source: patient Mode of arrival: ambulatory Limitations: no limitations History of Present Illness HPI Narrative: Jennifer is a 74 year old female patient presenting to the clinic today with c/o sore throat, fever, cough, congestion, and fatigue x2 days. Denies any chest pain or shortness of breath. MD elicited complaint: fever, cough, sore throat, rhinorrhea and nasal congestion Related Data Home Medications ?Medication ?Instructions ?Recorded ?Confirmed ?Last Taken ?Type hydrochlorothiazide 25 mg tablet 1 tablet PO DAILY 12/01/21 03/26/24 11/27/21 08:00 History pravastatin 20 mg tablet 20 mg PO DAILY 11/28/23 03/26/24 Unknown History spironolactone 25 mg tablet 25 mg PO DAILY 11/28/23 03/26/24 Unknown History diclofenac sodium 1 % topical gel topical 09/06/24 Unknown History Allergies Allergy/AdvReac Type Severity Reaction Status Date / Time cat dander Allergy Other Verified 09/06/24 19:19 Review of Systems Review of Systems: Pertinent positives per HPI. Patient denies any rash, headache, visual changes, dizziness, shortness of breath, chest pain, palpitations, nausea, vomiting, diarrhea, constipation, abdominal pain, or any urinary issues. [facility] Past Medical History Medical History Transaminitis Recurrent UTI Obesity H/O deep venous thrombosis Scarring of lung Post-COVID syndrome Prediabetes Mixed hyperlipidemia Deep vein thrombosis (DVT) of left lower extremity Mild depression Nephrolithiasis Surgical History Surgical History Hx of cholecystectomy (~2013) Hx of appendectomy (~1974) H/O: hysterectomy (~2001) Family History Family History Mother HLD (hyperlipidemia) Breast cancer Hypertension Lung cancer Father Heart disease Social History Social History Smoking status: Never smoker Second hand tobacco smoke exposure: No Alcohol intake: never Substance use: never Substance use type: does not use Lack of Transportation: No Lack of Food: Never True Current Housing: I Have Housing Concerned About Future Housing: No Difficulty Paying Gas/Electric Bills: No Difficulty Paying for Meds: No Currently Unemployed: No Education: Master's Degree or Higher Difficulty w/ Childcare or Family Care: No Living arrangements: with family 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 There is no relevant family history pertinent to the patient complaint. Exam Narrative: General: Well-developed, well nourished, in no apparent distress Head: Normocephalic, atraumatic Eyes: Pupils equally round and reactive to light bilaterally, EOM intact, sclera and conjunctive clear, no discharge, lids normal Ears: TMs intact and congested, ear canals clear, no drainage, grossly hearing normal. Nose: Nares patent, clear nasal discharge, mild inflammation, no sinus tenderness. Mouth: Oral pharynx without lesions or masses, good dentition, MMM. PND Neck: Supple, trachea midline, no enlargement of anterior or posterior cervical nodes, no thyroid masses or goiter palpable. Cardio: Regular rate and rhythm, s1 and s2 normal, no murmur appreciated. Resp: Clear to auscultation bilaterally, no rhonchi, rales, wheezing or rubs Course Course Emergency Course: Portions of this record may have been created with voice recognition software. Level of Care: Express Care Visit Vital Signs Vital signs: Vital Signs Temperature 36.9 C 09/06/24 19:21 Pulse Rate 79 09/06/24 19:21 Respiratory Rate 16 09/06/24 19:21 Blood Pressure 136/75 09/06/24 19:21 Pulse Oximetry 99 09/06/24 19:21 Temperature 36.9 C 09/06/24 19:21 Pulse Rate 79 09/06/24 19:21 Respiratory Rate 16 09/06/24 19:21 Blood Pressure 136/75 09/06/24 19:21 Pulse Oximetry 99 09/06/24 19:21 Vital signs reviewed MDM - URI/Sore Throat MDM Narrative Medical decision making narrative: At the time of visit patient is resting comfortably on the exam table. Patient appears to be nontoxic. Labs: COVID, influenza, and strep test were performed. Strep test was negative. COVID and influenza testing was negative. We will send strep for culture. Plan: I suspect patient has URI/pharyngitis/viral syndrome. Supportive measures were discussed with the patient and they voiced understanding discharge instructions and agrees to treatment plan. Return precautions reviewed Differential Diagnosis Differential diagnosis: Likely upper respiratory infection, otitis media, sinusitis, viral infection, bronchitis, influenza, pharyngitis and other (COVID) Lab Data Labs: Lab Results 09/06/24 09/06/24 Range/Units 19:26 19:33 POC Influenza A Ag Negative (Negative) POC Influenza B Ag Negative (Negative) POC SARS CoV-2 Ag Negative (Negative) POC Grp A Strep Screen Negative (Negative) Discharge Plan Discharge Clinical Impression: Acute viral syndrome URI (upper respiratory infection) Qualifiers: URI type: unspecified URI Qualified Code(s): J06.9 - Acute upper respiratory infection, unspecified Pharyngitis Qualifiers: Pharyngitis/tonsillitis etiology: unspecified etiology Qualified Code(s): J02.9 - Acute pharyngitis, unspecified Patient Disposition: Home, Self-Care Condition: Stable Instructions: Antibiotic Form, Pharyngitis (ED), Viral Syndrome (ED), Cold Symptoms (ED) Additional Instructions: Influenza, COVID, and strep test were all negative. We will send strep for culture. May take Coricidin HBP for cold/flu symptoms May take Mucinex for cough. Increase fluids and stay well hydrated Tylenol/motrin for pain/fever Flonase and OTC antihistamines as directed Vicks vapor rub to open sinuses Sinus rinses for congestion Cepacol spray, cough drops, throat lozenges, warm tea with honey/lemon, gargle salt water to soothe throat BRAT diet for diarrhea Clear liquids x 24 hours then advance as tolerated for nausea/vomiting Go to the ED if you develop a worsening in your condition- high fever not controlled by Tylenol or Motrin, dehydration, weakness, lethargy, shortness of breath, or chest pain. Follow up with your PCP in 3-5 days if symptoms persist. Patient Language: Lao Prescriptions: No Action hydrochlorothiazide 25 mg tablet 1 tablet PO DAILY diclofenac sodium 1 % gel TOPICAL spironolactone 25 mg tablet 25 mg PO DAILY pravastatin 20 mg tablet 20 mg PO DAILY Eliquis 5 mg tablet 5 mg PO BID Qty: 60 4RF ergocalciferol (vitamin D2) [Vitamin D2] 1,250 mcg (50,000 unit) capsule 1,250 mcg PO WEEKLY Qty: 12 2RF Rx Instructions: Takes on thursday albuterol sulfate [ProAir HFA] 90 mcg/actuation HFA aerosol inhaler 1 inh inhalation Q4H PRN (Reason: shortness of breath or wheezing) Qty: 8.5 5RF Follow-up/Referrals: UNKNOWN,DOCTOR [Non-Staff] - Time of Disposition: 19:34 Quality NIHSS Nursing Documentation ED NIHSS nursing documentation: reviewed/agree
[2024-09-06 19:21] VITALS: BP 136/75; PULSE 79; RESP 16; TEMP 36.9; O2SAT 99
[2024-09-06 19:28] LABS: EDSTREPNEGPOS1 Negative (Negative)
[2024-09-06 19:35] LABS: EDCOVIDSCREEN Negative (Negative); EDINFLUASCREEN Negative (Negative); EDINFLUBSCREEN Negative (Negative)
== END 2024-09-06 19:37 | disposition home or self-care (01) ==
PROVIDERS: Emergency Provider Nurse Practitioner Family; PCP Family Medicine
DX: B34.9 Viral infection, unspecified (principal); J06.9 Acute upper respiratory infection, unspecified; J02.9 Acute pharyngitis, unspecified; Z20.822 Contact with and (suspected) exposure to COVID-19; E78.2 Mixed hyperlipidemia; R73.03 Prediabetes; E66.9 Obesity, unspecified; Z68.34 Body mass index [BMI] 34.0-34.9, adult; Z86.718 Personal history of other venous thrombosis and embolism
CPT/HCPCS: 87081; 87426; 87804; 87880; 99213; G0463

== ENCOUNTER 2024-12-09 12:32 | Emergency (ER) | payer MEDICARE, SELFPAY ==
--- NOTE | 2024-12-09 12:35 | ED_ITS ---
HPI - URI/Sore Throat General Chief Complaint: Upper Respiratory Infection Stated Complaint: Sore Throat/Cough Time Seen by Provider: 12/09/24 12:34 Source: patient Mode of arrival: ambulatory Limitations: no limitations History of Present Illness HPI Narrative: Patient is a 74-year-old female who presents with 8-9 days sore throat, cough, sinus congestion. Was told to be tested for COVID and flu because her gra nddaughter is immunocompromised and will be around her. Has not had a fever since day 1. Denies any nausea, vomiting, diarrhea. Related Data Home Medications ?Medication ?Instructions ?Recorded ?Confirmed ?Last Taken ?Type hydrochlorothiazide 25 mg tablet 1 tablet PO DAILY 12/01/21 12/09/24 11/27/21 08:00 History pravastatin 20 mg tablet 20 mg PO DAILY 11/28/23 12/09/24 Unknown History spironolactone 25 mg tablet 25 mg PO DAILY 11/28/23 03/26/24 Unknown History diclofenac sodium 1 % topical gel topical 09/06/24 Unknown History Allergies Allergy/AdvReac Type Severity Reaction Status Date / Time cat dander Allergy Other Verified 12/09/24 12:54 Review of Systems Review of Systems: All systems reviewed & are unremarkable except as noted in HPI and below Constitutional: Constitutional: Denies chills, Denies fatigue, Denies fever(s), Denies headache(s), Denies malaise and Denies weakness Eyes: Eyes: Denies blurry vision, Denies itchy eyes and Denies loss of vision ENT: Denies otalgia, Denies headache(s), Reports nasal congestion, Denies sinus pain, Reports sinus pressure and Reports sore throat Cardiovascular: Cardiovascular: Denies chest pain, Denies irregular heart rhythm and Denies dyspnea Respiratory: Respiratory: Reports cough and Denies dyspnea Gastrointestinal: Gastrointestinal: Denies abdominal pain, Denies diarrhea, Denies nausea and Denies vomiting Musculoskeletal: Musculoskeletal: Denies back pain, Denies myalgias and Denies arthralgias Integumentary/Breasts: Skin/Breast: Denies pruritus and Denies rash Neurologic: Denies headache(s), Denies loss of vision and Denies weakness Psychiatric: Psychiatric: Reports no additional psychiatric complaints Endocrine: Endocrine: Denies fatigue Allergic/Immunologic: Allergic/Immunologic: Denies itchy eyes PMFSH Past Medical History Medical History Transaminitis Recurrent UTI Obesity H/O deep venous thrombosis Scarring of lung Post-COVID syndrome Prediabetes Mixed hyperlipidemia Deep vein thrombosis (DVT) of left lower extremity Mild depression Nephrolithiasis Surgical History Surgical History Hx of cholecystectomy (~2013) Hx of appendectomy (~1974) H/O: hysterectomy (~2001) Family History Family History Mother HLD (hyperlipidemia) Breast cancer Hypertension Lung cancer Father Heart disease Social History Social History Smoking status: Never smoker Second hand tobacco smoke exposure: No Alcohol intake: never Substance use: never Substance use type: does not use Lack of Transportation: No Lack of Food: Never True Current Housing: I Have Housing Concerned About Future Housing: No Difficulty Paying Gas/Electric Bills: No Difficulty Paying for Meds: No Currently Unemployed: No Education: Master's Degree or Higher Difficulty w/ Childcare or Family Care: No Living arrangements: with family Occupation/Education: occupation Additional occupation/education comments: Realtor Gender identity (if verbalized by the patient): Female Sexual Orientation (if Verbalized by the Patient): Straight or Heterosexual Spiritual care concerns: No Agree to blood products: Yes Comments At time of signature, agree with nursing past medical, surgical, social and family history. There is no relevant family history pertinent to the presenting complaint. Exam Const: General: cooperative, healthy appearing, comfortable, no acute distress and well nourished Nutritional Appearance: well nourished Orientation/consciousness: patient oriented x3 Limitations: no limitations HENMT: Head: normal to inspection, normocephalic and atraumatic Ears: hearing grossly normal bilaterally, external ears normal, TM's normal bilaterally, EAC's normal and no periauricular adenopathy Face/Nose/Sinus: Normal external nose present, Abnormal mucous membranes and turbinates present erythematous bilateral and diffuse, normal facial exam, face symmetric and Facial tenderness on exam of face and sinuses Face and sinus: normal facial exam and face symmetric Mouth: Yes Normal oral and palatal mucosa present, Yes lip normal, Yes tongue normal, Yes Normal salivary glands and ducts present, Yes oropharynx normal and Yes moist mucous membranes Teeth and gingiva: dentition normal Throat: posterior oropharynx normal, tonsils normal and uvula midline Eyes: General: appearance normal, both eyes and all related structures Alignment and Position: alignment normal and position normal Periorbital: periorbital findings normal Eyelids: eyelids normal Pupils: Equal, round and reactive pupils present Neck: Neck: normal visual inspection, full ROM, no lymphadenopathy and supple Chest: Chest palpation & inspection: normal inspection of the chest and normal palpation of entire chest wall Resp: Effort & Inspection: normal respiratory effort and able to speak in complete sentences Auscultation: clear to auscultation bilaterally, no crackles, no rales, no rhonchi and no wheezes Cardio: Rate: regular rate Rhythm: regular rhythm Heart sounds: S1 normal heart sound present and S2 normal heart sound present GI: Inspection: normal to inspection Skin: General skin exam: normal color and no rashes or lesions noted Neuro: General: patient oriented x3 and moves all extremities Cranial nerves: Yes Equal, round and reactive pupils present Speech: normal speech Gait exam (Neuro): Normal gait present Extrem: General: normal to inspection, full ROM and no edema Psych: Appearance: grossly normal and well kempt Mental Status: mental status grossly normal Speech and movement: Normal speech and movement present Affect: normal affect Attitude: cooperative Thought process: Normal thought process present Course Course Emergency Course: Discharge instructions reviewed with patient, as well as provided in writing per nursing staff. The instructions also include specific and strict return/GO TO THE ER as well as f/u information. All questions have been answered, and the patient deny any further questions with discharge and discharge plan. Portions of this record may have been created with voice recognition software Level of Care: Express Care Visit Vital Signs Vital signs: Vital Signs Temperature 36.8 C 12/09/24 12:57 Pulse Rate 75 12/09/24 12:57 Respiratory Rate 16 12/09/24 12:57 Blood Pressure 132/67 12/09/24 12:57 Oxygen Delivery Room Air 12/09/24 12:57 Temperature 36.8 C 12/09/24 12:57 Pulse Rate 75 12/09/24 12:57 Respiratory Rate 16 12/09/24 12:57 Blood Pressure 132/67 12/09/24 12:57 Oxygen Delivery Room Air 12/09/24 12:57 Reviewed MDM - URI/Sore Throat MDM Narrative Medical decision making narrative: Pt well hydrated appearing, in no respiratory distress, hemodynamically stable. Recommend supportive care. The patient is stable at time of discharge the clinical impression was discussed and the patient was given the opportunity to ask questions, which were addressed as completely as possible given the information available at present. Anticipatory guidance and return to care precautions were discussed and the importance of primary care follow-up was stressed and encouraged. The patient voiced understanding of the plan, indications to return, and the need for follow-up. Exam findings show no acute concerns or changes Patient is appropriate for outpatient treatment and follow-up. Differential diagnosis considered: Diane virus, strep pharyngitis, allergic rhinitis, upper respiratory tract infection, sinusitis, rhinosinusitis, nasopharyngitis. viral pharyngitis, otitis media, otitis externa, otitis effusion, foreign body, cerumen impaction, viral syndrome, and influenza.? Medical Records Attestation: I reviewed the patient's medical records. Lab Data Attestation: I reviewed the patient's lab results. Labs: Lab Results 12/09/24 Range/Units 13:13 POC Influenza A Ag Negative (Negative) POC Influenza B Ag Negative (Negative) POC SARS CoV-2 Ag Negative (Negative) Discharge Plan Discharge Clinical Impression: Sinusitis Patient Disposition: Home Condition: Stable Instructions: Sinusitis (ED) Additional Instructions: Take antibiotic as prescribed Your rapid strep swab was negative today at [facility]. A throat culture will be sent to the laboratory for further testing. If the test is positive, you will receive a phone call within 48 hours and an appropriate antibiotic will be initiated at that time. Your Covid and flu are both negative Your symptoms are likely due to a viral illness, which is not treated with antibiotics. Viral symptoms can be present for up to a few weeks. -For pain/fever, you may take: Tylenol 650-1000mg by mouth every 4-6 hours. Do not exceed 4000mg in 24 hours. Advil (Ibuprofen) 600 mg by mouth every 6 hours. Do not exceed 2400mg in 24 hours. 8 AM: Tylenol 11 AM: Ibuprofen 2 PM: Tylenol 5 PM: Ibuprofen 8 PM: Tylenol 11 PM: Ibuprofen 2 AM: Tylenol 5 AM: Ibuprofen -Antihistamine medication such as Benadryl/Zyrtec at night and Claritin/Jesika during the day can help improve symptoms. -Use Flonase twice a day for 5 days then daily to help reduce the inflammation and dry up your sinuses. -You can also use Sudafed behind the pharmacy counter(12 or 24 hour). Be sure to drink plenty of water with these medications at least 8 ounces with every dose and it is important to drink 8 to 10 glasses of water per day. Water is a natural decongestant -Eat and drink things that are easy to swallow, like tea or soup, or popsicles. -Oral rinses such as: Salt water gargles and/or may use topical anesthetic (eg. Chloraseptic spray) or lozenges to relieve dryness or throat pain). -Frequent hand washing or hand choreography director is one of the best ways to prevent spread of infection. -Using a vaporizer or humidifier at night will also help thin secretions and help with coughing up phlegm. Call your Primary Care Doctor and make a follow-up appointment in 3 days. If your cough worsens, you develop a fever greater than 103, you develop shaking chills, a fast heartbeat, trouble breathing and/or feel you are are breathing much faster than usual, call your Primary Care Doctor or go to the ER. Patient Language: Romanian Prescriptions: New fluticasone propionate [Flonase Allergy Relief] 50 mcg/actuation spray,suspension 1 spray intranasal DAILY Qty: 16 0RF Rx Instructions: administer into each nostril amoxicillin-pot clavulanate 875-125 mg tablet 1 tablet PO Q12H 10 Days Qty: 20 0RF No Action hydrochlorothiazide 25 mg tablet 1 tablet PO DAILY diclofenac sodium 1 % gel TOPICAL spironolactone 25 mg tablet 25 mg PO DAILY pravastatin 20 mg tablet 20 mg PO DAILY Eliquis 5 mg tablet 5 mg PO BID Qty: 60 4RF ergocalciferol (vitamin D2) [Vitamin D2] 1,250 mcg (50,000 unit) capsule 1,250 mcg PO WEEKLY Qty: 12 2RF Rx Instructions: Takes on thursday albuterol sulfate [ProAir HFA] 90 mcg/actuation HFA aerosol inhaler 1 inh inhalation Q4H PRN (Reason: shortness of breath or wheezing) Qty: 8.5 5RF Follow-up/Referrals: Gianfranco Tamayo MD [Physician] - 3 Days (Former[facility] care) Time of Disposition: 13:27
[2024-12-09 12:57] VITALS: BP 132/67; PULSE 75; RESP 16; TEMP 36.8
[2024-12-09 13:15] LABS: EDCOVIDSCREEN Negative (Negative); EDINFLUASCREEN Negative (Negative); EDINFLUBSCREEN Negative (Negative)
== END 2024-12-09 13:31 | disposition home or self-care (01) ==
PROVIDERS: Emergency Provider Nurse Practitioner Family
DX: J32.9 Chronic sinusitis, unspecified (principal); Z20.822 Contact with and (suspected) exposure to COVID-19; E78.2 Mixed hyperlipidemia; R73.03 Prediabetes; E66.9 Obesity, unspecified; Z68.35 Body mass index [BMI] 35.0-35.9, adult; Z86.718 Personal history of other venous thrombosis and embolism; Z79.01 Long term (current) use of anticoagulants
CPT/HCPCS: 87426; 87804; 99213; G0463

== ENCOUNTER 2025-06-15 10:50 | Emergency (ER) | payer MEDICARE, SELFPAY ==
--- NOTE | 2025-06-15 11:03 | ED.URI ---
HPI - URI/Sore Throat General Chief Complaint: Upper Respiratory Infection Stated Complaint: covid and flu testing Time Seen by Provider: 06/15/25 10:50 Source: patient Mode of arrival: ambulatory Limitations: no limitations History of Present Illness HPI Narrative: patient is a 75-year-old female who presents with chills, body aches, fatigue, sore throat, stomach ache, decreased appetite and bilateral ear pain. Has been taken DayQuil and NyQuil. Patient has been around her grandchildren who have all been sick with either COVID, flu B or strep. Related Data Home Medications ?Medication ?Instructions ?Recorded ?Confirmed ?Last Taken ?Type hydrochlorothiazide 25 mg tablet 1 tablet PO DAILY 12/01/21 06/15/25 11/27/21 08:00 History pravastatin 20 mg tablet 20 mg PO DAILY 11/28/23 06/15/25 Unknown History spironolactone 25 mg tablet 25 mg PO DAILY 11/28/23 06/15/25 Unknown History diclofenac sodium 1 % topical gel topical 09/06/24 Unknown History Allergies Allergy/AdvReac Type Severity Reaction Status Date / Time cat dander Allergy Other Verified 06/15/25 11:22 Review of Systems Review of Systems: All systems reviewed & are unremarkable except as noted in HPI and below Constitutional: Constitutional: Reports chills, Reports fatigue, Denies fever(s), Denies headache(s), Denies malaise, Reports poor appetite and Denies weakness Eyes: Eyes: Denies blurry vision, Denies itchy eyes and Denies loss of vision ENT: Reports otalgia, Denies headache(s), Denies nasal congestion, Denies sinus pain and Reports sore throat Cardiovascular: Cardiovascular: Denies chest pain, Denies irregular heart rhythm and Denies dyspnea Respiratory: Respiratory: Denies cough and Denies dyspnea Gastrointestinal: Gastrointestinal: Reports abdominal pain, Denies diarrhea, Denies nausea and Denies vomiting Musculoskeletal: Musculoskeletal: Denies back pain, Denies myalgias and Denies arthralgias Integumentary/Breasts: Skin/Breast: Denies pruritus and Denies rash Neurologic: Denies headache(s), Denies loss of vision and Denies weakness Psychiatric: Psychiatric: Reports no additional psychiatric complaints Endocrine: Endocrine: Denies fatigue Allergic/Immunologic: Allergic/Immunologic: Denies itchy eyes PMFSH Past Medical History Medical History Transaminitis Recurrent UTI Obesity H/O deep venous thrombosis Scarring of lung Post-COVID syndrome Prediabetes Mixed hyperlipidemia Deep vein thrombosis (DVT) of left lower extremity Mild depression Nephrolithiasis Surgical History Surgical History Hx of cholecystectomy (~2013) Hx of appendectomy (~1974) H/O: hysterectomy (~2001) Family History Family History Mother HLD (hyperlipidemia) Breast cancer Hypertension Lung cancer Father Heart disease Social History Social History Smoking status: Never smoker Second hand tobacco smoke exposure: No Alcohol intake: never Substance use: never Substance use type: does not use Lack of Transportation: No Lack of Food: Never True Current Housing: I Have Housing Concerned About Future Housing: No Difficulty Paying Gas/Electric Bills: No Difficulty Paying for Meds: No Currently Unemployed: No Education: Master's Degree or Higher Difficulty w/ Childcare or Family Care: No Living arrangements: with family Occupation/Education: occupation Additional occupation/education comments: Realtor Gender identity (if verbalized by the patient): Female Sexual Orientation (if Verbalized by the Patient): Straight or Heterosexual Spiritual care concerns: No Agree to blood products: Yes Comments At time of signature, agree with nursing past medical, surgical, social and family history. There is no relevant family history pertinent to the presenting complaint. Exam Const: General: cooperative, healthy appearing, comfortable, no acute distress and well nourished Nutritional Appearance: well nourished Orientation/consciousness: patient oriented x3 Limitations: no limitations HENMT: Head: normal to inspection, normocephalic and atraumatic Ears: hearing grossly normal bilaterally, external ears normal, TM's normal bilaterally, EAC's normal and no periauricular adenopathy Face/Nose/Sinus: Normal external nose present, Abnormal mucous membranes and turbinates present erythematous bilateral and diffuse, normal facial exam, sinuses nontender and face symmetric Face and sinus: normal facial exam, sinuses nontender and face symmetric Mouth: Yes Normal oral and palatal mucosa present, Yes lip normal, Yes tongue normal, Yes Normal salivary glands and ducts present, Yes oropharynx normal and Yes moist mucous membranes Teeth and gingiva: dentition normal Throat: posterior oropharynx normal, tonsils normal and uvula midline Eyes: General: appearance normal, both eyes and all related structures Alignment and Position: alignment normal and position normal Periorbital: periorbital findings normal Eyelids: eyelids normal Pupils: Equal, round and reactive pupils present Neck: Neck: normal visual inspection, full ROM, no lymphadenopathy and supple Chest: Chest palpation & inspection: normal inspection of the chest and normal palpation of entire chest wall Resp: Effort & Inspection: normal respiratory effort and able to speak in complete sentences Auscultation: clear to auscultation bilaterally, no crackles, no rales, no rhonchi and no wheezes Cardio: Rate: regular rate Rhythm: regular rhythm Heart sounds: S1 normal heart sound present and S2 normal heart sound present GI: Inspection: normal to inspection Skin: General skin exam: normal color and no rashes or lesions noted Neuro: General: patient oriented x3 and moves all extremities Cranial nerves: Yes Equal, round and reactive pupils present Speech: normal speech Gait exam (Neuro): Normal gait present Extrem: General: normal to inspection, full ROM and no edema Psych: Appearance: grossly normal and well kempt Mental Status: mental status grossly normal Speech and movement: Normal speech and movement present Affect: normal affect Attitude: cooperative Thought process: Normal thought process present Course Course Emergency Course: Patient is aware of diagnosis, understands and agrees to treatment plan. Anticipatory guidance given. Patient agrees to follow-up as directed and is aware of reasons to seek care at the emergency department. Portions of this record may have been created with voice recognition software Level of Care: Express Care Visit Vital Signs Vital signs: Vital Signs Temperature 36.5 C 06/15/25 11:21 Pulse Rate 70 06/15/25 11:21 Respiratory Rate 16 06/15/25 11:21 Blood Pressure 133/68 06/15/25 11:21 Pulse Oximetry 99 06/15/25 11:21 Temperature 36.5 C 06/15/25 11:21 Pulse Rate 70 06/15/25 11:21 Respiratory Rate 16 06/15/25 11:21 Blood Pressure 133/68 06/15/25 11:21 Pulse Oximetry 99 06/15/25 11:21 MDM MDM Narrative Medical decision making narrative: Rapid COVID, flu, strep were negative. A throat culture is pending. Symptoms likely viral in etiology. Pt well hydrated appearing, in no respiratory distress, hemodynamically stable. Recommend supportive care. The patient is stable at time of discharge the clinical impression was discussed and the patient was given the opportunity to ask questions, which were addressed as completely as possible given the information available at present. Anticipatory guidance and return to care precautions were discussed and the importance of primary care follow-up was stressed and encouraged. The patient voiced understanding of the plan, indications to return, and the need for follow-up. Exam findings show no acute concerns or changes Patient is appropriate for outpatient treatment and follow-up. Differential Diagnosis Differential Diagnosis: Differential diagnosis considered: Diane virus, strep pharyngitis, allergic rhinitis, upper respiratory tract infection, sinusitis, rhinosinusitis, nasopharyngitis. viral pharyngitis, otitis media, otitis externa, otitis effusion, foreign body, cerumen impaction, viral syndrome, and influenza. Medical Records I have reviewed the following patient records and this information was taken into consideration when formulating the assessment and plan.: previous clinic visits Lab Data [facility] Lab Attestation statement: I personally reviewed the patient's lab results. Labs: Lab Results 06/15/25 Range/Units 11:33 POC Influenza A Ag Negative (Negative) POC Influenza B Ag Negative (Negative) POC SARS CoV-2 Ag Negative (Negative) POC Grp A Strep Screen Negative (Negative) Discharge Plan Discharge Clinical Impression: Upper respiratory infection Qualifiers: URI type: unspecified viral URI Qualified Code(s): J06.9 - Acute upper respiratory infection, unspecified Patient Disposition: Home Condition: Stable Instructions: Upper Respiratory Infection (ED) Additional Instructions: Your rapid strep swab was negative today at [facility]. A throat culture will be sent to the laboratory for further testing. If the test is positive, you will receive a phone call within 48 hours and an appropriate antibiotic will be initiated at that time. Your Covid and flu are both negative Your symptoms are likely due to a viral illness, which is not treated with antibiotics. Viral symptoms can be present for up to a few weeks. -For pain/fever, you may take: Tylenol 650-1000mg by mouth every 4-6 hours. Do not exceed 4000mg in 24 hours. -Antihistamine medication such as Benadryl/Zyrtec at night and Claritin/Jesika during the day can help improve symptoms. -Use Flonase twice a day for 5 days then daily to help reduce the inflammation and dry up your sinuses. -You can also use Sudafed behind the pharmacy counter(12 or 24 hour). Be sure to drink plenty of water with these medications at least 8 ounces with every dose and it is important to drink 8 to 10 glasses of water per day. Water is a natural decongestant -Eat and drink things that are easy to swallow, like tea or soup, or popsicles. -Oral rinses such as: Salt water gargles and/or may use topical anesthetic (eg. Chloraseptic spray) or lozenges to relieve dryness or throat pain). -Frequent hand washing or hand wheel inspector is one of the best ways to prevent spread of infection. -Using a vaporizer or humidifier at night will also help thin secretions and help with coughing up phlegm. Call your Primary Care Doctor and make a follow-up appointment in 3 days. If your cough worsens, you develop a fever greater than 103, you develop shaking chills, a fast heartbeat, trouble breathing and/or feel you are are breathing much faster than usual, call your Primary Care Doctor or go to the ER. Patient Language: Persian Prescriptions: New loratadine 10 mg tablet 10 mg PO DAILY Qty: 30 0RF No Action hydrochlorothiazide 25 mg tablet 1 tablet PO DAILY diclofenac sodium 1 % gel TOPICAL spironolactone 25 mg tablet 25 mg PO DAILY pravastatin 20 mg tablet 20 mg PO DAILY fluticasone propionate [Flonase Allergy Relief] 50 mcg/actuation spray,suspension 1 spray intranasal DAILY Qty: 16 0RF Rx Instructions: administer into each nostril Eliquis 5 mg tablet 5 mg PO BID Qty: 60 4RF ergocalciferol (vitamin D2) [Vitamin D2] 1,250 mcg (50,000 unit) capsule 1,250 mcg PO WEEKLY Qty: 12 2RF Rx Instructions: Takes on thursday albuterol sulfate [ProAir HFA] 90 mcg/actuation HFA aerosol inhaler 1 inh inhalation Q4H PRN (Reason: shortness of breath or wheezing) Qty: 8.5 5RF Follow-up/Referrals: Mayank,MD Laurie [Primary Care Provider, Family Practice] - 3 Days Time of Disposition: 12:10
[2025-06-15 11:21] VITALS: BP 133/68; PULSE 70; RESP 16; TEMP 36.5; O2SAT 99
[2025-06-15 11:50] LABS: EDCOVIDSCREEN Negative (Negative); EDINFLUASCREEN Negative (Negative); EDINFLUBSCREEN Negative (Negative); EDSTREPNEGPOS1 Negative (Negative)
== END 2025-06-15 12:15 | disposition home or self-care (01) ==
PROVIDERS: Emergency Provider Nurse Practitioner Family; PCP Family Medicine
DX: J06.9 Acute upper respiratory infection, unspecified (principal); Z20.822 Contact with and (suspected) exposure to COVID-19; E78.2 Mixed hyperlipidemia; R73.03 Prediabetes; E66.9 Obesity, unspecified; Z68.34 Body mass index [BMI] 34.0-34.9, adult; Z86.718 Personal history of other venous thrombosis and embolism; Z79.01 Long term (current) use of anticoagulants
CPT/HCPCS: 87081; 87426; 87804; 87880; 99213; G0463